=== PATIENT | female | born 1930 | race Caucasian/White ===

== ENCOUNTER → 2016-10-07 | Outpatient (CLI) | payer OTHER, BC ==
[~2016-10-07] MED LIST: AMLO2.5T PO; ASPEC81 PO; ASPI81TA28 PO; CLB200 PO; EFF/375 PO; GLC/500 PO; HYDR-5688 PO; LEVO100T7 PO; LISI-787 PO; MULTTAB58 PO; NADO40TA PO; PRAM1TAB52 PO; SIMV20TA2 PO; SNK PO; ZNT/150 PO
[2016-10-07 13:39] LABS: ALT/SGPT 22 U/L (12-78); AST/SGOT 19 U/L (15-37); BLOOD UREA NITROGEN 18 mg/dl (7-18); BUN/CREATININE RATIO 24.4 (10-20); CALCIUM 9.3 mg/dl (8.5-10.1); CARBON DIOXIDE 29 mmol/L (21-32); CHLORIDE 102 mmol/L (98-107); CREATININE 0.72 mg/dl (0.60-1.20); GLUCOSE 110 mg/dl (70-99); POTASSIUM 4.1 mmol/L (3.5-5.1); SODIUM 138 mmol/L (136-145)
[2016-10-07 13:42] LABS: CHOLESTEROL 152 mg/dl (0-200); CHOLESTEROL/HDL RATIO 2.6; HDL CHOLESTEROL 59 mg/dl; LDL CHOLESTEROL CALCULATED 68 mg/dl; PHOSPHORUS 3.2 mg/dl (2.5-4.9); TRIGLYCERIDES 126 mg/dl (0-150); VERY LOW DENSITY LIPOPROT CALC 25 mg/dl
[2016-10-07 13:43] LABS: ESTIMATED AVERAGE GLUCOSE 163 mg/dl; HA1C FLAG Normal (Normal)
== END | disposition home or self-care (01) ==
LOC: C.LABMFLN 07:55
PROVIDERS: ATTEND Family Medicine
DX: E11.9 Type 2 diabetes mellitus without complications (principal); E78.5 Hyperlipidemia, unspecified

== ENCOUNTER → 2017-01-05 | Outpatient (CLI) | payer OTHER, BC ==
[2017-01-05 13:52] LABS: BLOOD UREA NITROGEN 17 mg/dl (7-18); CALCIUM 9.7 mg/dl (8.5-10.1); CARBON DIOXIDE 29 mmol/L (21-32); CHLORIDE 104 mmol/L (98-107); CREATININE 0.58 mg/dl (0.60-1.20); ESTIMATED AVERAGE GLUCOSE 157 mg/dl; GLUCOSE 112 mg/dl (70-99); HA1C FLAG Normal (Normal); PHOSPHORUS 3.2 mg/dl (2.5-4.9); POTASSIUM 3.6 mmol/L (3.5-5.1); SODIUM 141 mmol/L (136-145)
[2017-01-05 13:59] LABS: RATIO 38.1 mcg/mg (0-30.0)
== END | disposition home or self-care (01) ==
LOC: C.LABMFLN 18:16
PROVIDERS: ATTEND Family Medicine
DX: E11.9 Type 2 diabetes mellitus without complications (principal); E03.9 Hypothyroidism, unspecified

== ENCOUNTER → 2017-03-16 | Outpatient (CLI) | payer OTHER, BC ==
[2017-03-16 13:14] LABS: BASO % 0.8 %; BASO ABS # 0.04 K/uL (0-0.2); COMPLETE YES; EOS % 8.1 %; HEMATOCRIT 38.9 % (37-47); LYMPH % 30.9 %; LYMPH ABS # 1.63 K/uL (1.2-3.4); MEAN CELL VOLUME 82.8 fL (80-100); MEAN CORPUSCULAR HEMOGLOBIN 26.2 pg (25-34); MEAN CORPUSCULAR HGB CONC 31.6 g/dl (32-36); MEAN PLATELET VOLUME 9.9 fL (7.4-10.4); MONO % 11.2 %; PLATELET COUNT 229 K/uL (130-400); WHITE BLOOD COUNT 5.28 K/uL (4.8-10.8)
[2017-03-16 13:24] LABS: ALT/SGPT 22 U/L (12-78); AST/SGOT 18 U/L (15-37); BLOOD UREA NITROGEN 12 mg/dl (7-18); BUN/CREATININE RATIO 19.8 (10-20); CALCIUM 9.5 mg/dl (8.5-10.1); CARBON DIOXIDE 33 mmol/L (21-32); CHLORIDE 102 mmol/L (98-107); CREATININE 0.62 mg/dl (0.60-1.20); GLUCOSE 121 mg/dl (70-99); MAGNESIUM 1.9 mg/dl (1.8-2.4); POTASSIUM 3.5 mmol/L (3.5-5.1); SODIUM 139 mmol/L (136-145)
[2017-03-16 13:26] LABS: ALB/GLOB RATIO 0.7 (0.9-2); ALKALINE PHOSPHATASE 88 U/L (45-117)
--- NOTE | 2017-04-14 06:41 | CODING QUERY MEDICAL NECESSITY ---
CQSUPPORTING DIAGNOSIS NEEDED A supporting diagnosis is required for the test/procedure performed on this patient in order for us to be reimbursed by the patient's insurance. Please provide a supporting diagnosis for the following test/procedure listed below next to the test name along with your signature. *If there is no additional diagnosis for this patient that would support the following test/procedure please document that below next to the test/procedure. Test(s)/Procedure(s) that require a supporting diagnosis: DOS 03/16/17 VITAMIN D TEST VITAMIN B12 TEST TEST ORDERED BY ELKIN JANSEN Provider Signature: Date: Thank you Michelle Keyes Health Information Management Once completed, please kindly fax back to [phone] For questions please call [phone]
== END | disposition home or self-care (01) ==
LOC: C.LABMFLN 10:26
PROVIDERS: ATTEND Family Medicine
DX: R53.83 Other fatigue (principal); M79.606 Pain in leg, unspecified; E55.9 Vitamin D deficiency, unspecified

== ENCOUNTER → 2017-07-06 | Outpatient (CLI) | payer OTHER, BC ==
[2017-07-06 13:21] LABS: ESTIMATED AVERAGE GLUCOSE 154 mg/dl; HA1C FLAG Normal (Normal)
[2017-07-06 13:25] LABS: BLOOD UREA NITROGEN 13 mg/dl (7-18); BUN/CREATININE RATIO 20.8 (10-20); CALCIUM 9.8 mg/dl (8.5-10.1); CARBON DIOXIDE 30 mmol/L (21-32); CHLORIDE 99 mmol/L (98-107); CREATININE 0.63 mg/dl (0.60-1.20); GLUCOSE 110 mg/dl (70-99); PHOSPHORUS 3.1 mg/dl (2.5-4.9); POTASSIUM 3.5 mmol/L (3.5-5.1); SODIUM 137 mmol/L (136-145)
== END | disposition home or self-care (01) ==
LOC: C.LABMFLN 10:29
PROVIDERS: ATTEND Family Medicine
DX: E11.9 Type 2 diabetes mellitus without complications (principal)

== ENCOUNTER → 2017-10-19 | Outpatient (CLI) | payer OTHER, BC ==
[2017-10-19 19:06] LABS: ALBUMIN 3.3 gm/dl (3.4-5.0); BLOOD UREA NITROGEN 19 mg/dl (7-18); CALCIUM 9.1 mg/dl (8.5-10.1); CARBON DIOXIDE 27 mmol/L (21-32); CREATININE 0.74 mg/dl (0.60-1.20); GLUCOSE 113 mg/dl (70-99); POTASSIUM 3.8 mmol/L (3.5-5.1); SODIUM 135 mmol/L (136-145)
[2017-10-19 19:10] LABS: CHOLESTEROL 140 mg/dl (0-200); LDL CHOLESTEROL CALCULATED 68 mg/dl; PHOSPHORUS 3.6 mg/dl (2.5-4.9)
[2017-10-20 06:29] LABS: HEMOGLOBIN A1C 7.1 % (4.5-5.6)
== END | disposition home or self-care (01) ==
LOC: C.LABMFLN 10:53
PROVIDERS: ATTEND Family Medicine
DX: E11.9 Type 2 diabetes mellitus without complications (principal); E78.5 Hyperlipidemia, unspecified; E55.9 Vitamin D deficiency, unspecified

== ENCOUNTER → 2018-04-06 | Outpatient (CLI) | payer OTHER, BC ==
[~2018-04-06] MED LIST changes: +ACET1TAB84 PO; +AMLO5TAB3 PO; +ASCO-63 PO; +ASPCH81X PO; -ASPEC81 PO; +ASPI-320 PO; +CARB1SOL OPB; +CHOL2000 PO; +CYAN100020 PO; +FERR1TAB23 PO; +LEVO112T4 PO; +META1TAB22 PO; +METF500T5 PO; +MULT-506 PO; +PRAM1TAB47 PO; +PRAV20TA PO; +[UNRECOGNIZED DRUG - OTHER] PO
--- NOTE | 2018-04-06 13:08 | DIAGNOSTIC IMAGING REPORT ---
CHEST SUPERDIMENSIONAL WITHOUT CLINICAL HISTORY: 87 years-old Female presenting with R91.8 Pulmonary nodules. TECHNIQUE: Multidetector CT imaging of the chest was performed without the use of intravenous contrast. IV contrast: None. A dose lowering technique was used consistent with the principles of ALARA (as low as reasonably achievable). COMPARISON: 01/27/2018. CT DOSE (mGy.cm): The estimated cumulative dose is 203.88 mGy.cm. FINDINGS: Cloth Mercerizing Supervisor topogram: Hyperinflated lungs. On soft tissue windows, thyroid may be surgically absent or atrophic. Multiple prominent mediastinal lymph nodes measuring up to 8 mm in the short axis in the precarinal region. These may be reactive. Atherosclerosis of the aorta. Multichamber enlargement of the heart. Coronary artery, aortic valve, and mitral annular calcification. No pericardial or pleural effusion. Upper abdomen normal. On lung windows, moderate apical predominant emphysema. The previously noted irregular nodular opacity in the right apex is less well-defined on the current exam and may represent scarring or postinfectious or postinflammatory change (series 4 image 86). Dependent groundglass opacity throughout both lower lobes. Scattered small solid pulmonary nodules in the right lung measuring up to 5 mm (series 4 images 59, 140, 148, 176, 196). Crowding of vascular markings at the lung bases makes a violation for lower lobe pulmonary nodules difficult. Additionally, image quality at the lung bases is degraded by respiratory motion related artifact. Calcified granuloma in the left upper lobe. Central airways patent. No pneumothorax. On bone windows, degenerative changes of the spine. IMPRESSION: 1. Previous site of irregular nodular opacity in the right apex is less well-defined on the current exam and does not appear as a discrete nodule. This may represent scarring or postinfectious or postinflammatory change. 2. Multiple solid pulmonary nodules in the right lung measuring up to 5 mm. These are unchanged from prior. 3. Emphysema. Please refer to below summary of Fleischner Society 2017 recommendations for follow-up of incidental CT nodules (Ousmane Vega et al. Guidelines for management of incidental pulmonary nodules detected on CT images: From the Fleischner Society 2017. Radiology 2017; 284: 228-243.) SOLID NODULES Single nodule; size < 6 mm * Low risk patients: No routine follow-up * High risk patients: Optional CT at 12 months Single nodule; size 6-8 mm * Low risk patients: CT at 6-12 months, then consider CT at 18-24 months * High risk patients: CT at 6-12 months, then at 18-24 months Single nodule; size > 8 mm * Either low or high risk patients: Considered CT at 3 months, PET/CT, or tissue sampling Multiple nodules; size < 6 mm * Low risk patients: No routine follow up * High risk patients: Optional CT at 12 months Multiple nodules; size 6-8 mm * Low risk patients: CT at 3-6 months, then consider CT at 18-24 months * High risk patients: CT at 3-6 months, then at 18-24 months Multiple nodules; size > 8 mm * Low risk patients: CT at 3-6 months, then consider at 18-24 months * High risk patients: CT at 3-6 months, then at 18-24 months SUBSOLID NODULES Single ground-glass nodule * Nodule size < 6 mm: No routine follow-up * Nodule size > or = 6 mm: CT at 6-12 months to confirm persistence, then CT every 2 years until 5 years Single part-solid nodule * Nodule size < 6 mm: No routine follow-up * Nodules size > or = 6 mm: CT at 3-6 months to confirm persistence. If unchanged and solid component remains < 6 mm, annual CT should be performed for 5 years Multiple nodules * Nodule size < 6 mm: CT at 3-6 months. If stable, consider CT at 2 and 4 years. * Nodules size > or = 6 mm: CT at 3-6 months. Subsequent management based on the most suspicious nodule(s) NOTE: 1) These guidelines apply to incidental nodules. These guidelines do NOT apply to patients younger than 35 years, immunocompromised patients, or patients with cancer. 2) Risk categories: * Low risk patients: Minimal or absent history of smoking and/or other known risk factors * High risk patients: History of smoking, exposure to other carcinogens, emphysema, fibrosis, upper lobe location, family history of lung cancer, etc. 3) If a nodule up to 8 mm is partly solid or is ground glass, further follow-up is required after 24 months to exclude possible slow growing adenocarcinoma. Electronically signed by: Simone Mallory M.D. 04/06/2018 1:06 PM Dictated Date/Time: 04/06/2018 12:56 PM
== END | disposition home or self-care (01) ==
LOC: C.CTS 12:15
PROVIDERS: ATTEND Surgery
DX: R91.8 Other nonspecific abnormal finding of lung field (principal); J43.9 Emphysema, unspecified

== ENCOUNTER 2021-12-11 10:42 | Inpatient (IN) ==
[2021-12-11] MEDS ORDERED: ALBUT/IPRATROP 3MG/0.5MG NEB 3 ML VIAL INH STA (11:11)
--- NOTE | 2021-12-11 11:14 | Emergency Department Note ---
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 Patient was at the [facility] earlier today for chemotherapy treatment, was noted to be short of breath and had oxygen saturations in the 80s at that time on room air, she was referred to the emergency department for further care. Patient does have some memory issues at baseline, she is a poor historian, she is unable to give me a course of her illness. Her niece at the bedside states that the patient did seem to have some increased work of breathing earlier today when they were at the [facility]. She denies any chest pain. She was noted to be saturating at 80% on room air on arrival here to the ED and was placed on 3 L of nasal cannula oxygen with good improvement to 97% on my initial assessment. ROS: -Pulm: Shortness of breath, hypoxia. *10 point review systems was conducted and is otherwise negative unless stated above *Outpatient medications and allergy history reviewed PE: General: Alert, frail-appearing HEENT: Normocephalic, atraumatic Eyes: Extraocular eye movement is intact, no scleral erythema Pulmonary: Coarse bilateral breath sounds Cardio: Regular rate and rhythm GI: Abdomen is soft, nontender : No suprapubic tenderness MSK: No evidence of trauma or malformation of the extremities, no edema Skin: No evidence of rash Neuro: Alert, no focal deficits Psychiatric: Cooperative bus monitor: - An order was placed for continuous cardiac monitoring - Patient was noted to be in sinus rhythm with rate of 96 EKG: Rate: 94 Rhythm: Normal sinus rhythm Intervals: QRS 138 ms, QTC 502 ms, NC within normal limits ST changes: No ST elevation Time: 1116 Medical Decision Making: Patient presented to the emergency department with shortness of breath, hypoxia, this was noted when she was in the oncology office today. She was saturating at 80% on room air on arrival here to the ED, she was placed on nasal cannula oxygen with good improvement. Patient does have a history of large B-cell lymphoma and is currently under chemotherapy. She denies any chest pain on arrival. She does have a history of memory impairment per documentation and is a poor historian, her niece at the bedside serves as the primary historian. Early after arrival IV was established, patient was maintained on nasal cannula oxygen, lab work was obtained and she was placed on the child monitor. Patient maintained oxygen saturations in the high 90s on 3 L nasal cannula oxygen. Lab work shows a slightly low hemoglobin at 9.5, this is a change management manager the past 5 days from the patient's previous level of 10.6, she denies any gross bleeding. There is no leukocytosis, no critical electrolyte abnormalities are noted. High-sensitivity troponin levels elevated in the 70s. EKG does not show any acute changes from previous. Patient denies any active chest pain. Venous blood gas shows evidence of hypercarbic respiratory failure with acidotic pH of 7.28 and hypercarbia of 59, patient was given Solu-Medrol and DuoNeb breathing treatment here in the ED. CT angiography of the chest was obtained and does not show any evidence of pulmonary embolism, there is evidence of mild to moderate pulmonary edema. Patient was ordered a small dose of IV Lasix. On my reassessment the patient is comfortable appearing on 3 L nasal cannula oxygen, she will be admitted for further management. [facility] Hospitalist service was consulted for admission. Patient and her niece at the bedside are in agreement to the above plan and the patient was admitted in stable condition. * CRITICAL CARE TIME: ( 45 ) minutes -Stabilization of hypoxia with oxygen saturations less than 90% on room air, requiring nasal cannula oxygen for improvement, time spent at the bedside, interpretation of diagnostic studies, discussion with other healthcare providers and arrangement of admission. Diagnosis: 1. Acute hypoxic respiratory failure with hypercarbia 2. Respiratory acidosis 3. Pulmonary edema 4. History of large B-cell lymphoma, on chemotherapy 5. Evaded high-sensitivity troponin level Disposition: Admission Chencho Alexandra DO Emergency Medicine Past Med/Surg History Medical History Anemia Anxiety Chronic obstructive pulmonary disease Depression Diabetes mellitus, type 2 History of anesthesia reaction Hx of ulcer disease Hyperlipidemia Hypertension Hypothyroidism Osteoarthritis Restless leg syndrome Scoliosis Sleep apnea SOB (shortness of breath) on exertion UTI symptoms Surgical History History of dilatation and curettage History of endoscopic sinus surgery History of lung surgery History of total hip arthroplasty Family History Family/Other Family history of diabetes mellitus Other Family history of esophageal cancer Social History Smoking Status: Former smoker Cigarettes Per Day: 20; Second Hand Exposure: No; Hx Alcohol Use: No Hx Substance Use: No Preferred Language: Bhutanese Communication Ability: Effective Machine 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 Required: No Beliefs That Will Affect Care: None Current Living Situation: Alone Feels Safe at Home: Yes Assistive Devices: Glasses, Hearing Aid - Left and Walker Allergies Allergies Allergy/AdvReac Type Severity Reaction Status Date / Time No Known Allergies Allergy Verified 11/14/21 09:26 Home Meds Previous Rx's Medication Instructions Recorded aspirin 81 mg tablet,delayed 81 mg PO DAILY #90 tab 02/25/21 release (Adult Low Dose Aspirin) calcium carbonate 320 mg calcium 650 mg PO BID #180 tab 02/25/21 (750 mg) chewable tablet (Antacid (calcium carbonate)) cholecalciferol (vitamin D3) 50 50 mcg PO DAILY #90 cap 02/25/21 mcg (2,000 unit) capsule levothyroxine 112 mcg tablet 112 mcg PO DAILY #90 tab 02/25/21 metformin 850 mg tablet 850 mg PO BID #180 tab 02/25/21 pramipexole 1 mg tablet 1 mg PO DAILY #90 tab 02/25/21 blood glucose control, normal #1 ea 03/15/21 acetaminophen 325 mg tablet 650 mg PO BID #120 tab 06/05/21 (Tylenol) blood sugar diagnostic (True #200 ea 06/05/21 Metrix Glucose Test Strip) multivitamin 1 tab PO DAILY #30 tab 08/07/21 furosemide 20 mg tablet (Lasix) 20 mg PO DAILY #90 tab 08/21/21 metoprolol succinate 25 mg 25 mg PO DAILY #30 tab 09/18/21 tablet,extended release 24 hr lisinopril 10 mg tablet 15 mg PO DAILY #30 tab 09/20/21 venlafaxine 150 mg 150 mg PO DAILY #30 cap 09/23/21 capsule,extended release 24 hr (Effexor XR) triamcinolone acetonide 0.1 % 1 applic TOPICAL BID 10 Days #15 g 09/26/21 topical cream omeprazole 20 mg capsule,delayed 20 mg PO DAILY #30 cap 10/11/21 release melatonin 10 mg capsule 10 mg PO HS #90 cap 10/22/21 blood glucose control, high and #1 ea 10/24/21 normal solution (Assure Dose Norm-Hi Control) ferrous sulfate 325 mg (65 mg 325 mg PO Q OTHER DAY #30 tab 11/14/21 iron) tablet trazodone 100 mg tablet 100 mg PO .qhs #30 tab 11/14/21 Results & Data (ED) Vital Signs Vital Signs - 24 hr 12/11/21 10:56 12/11/21 11:16 12/11/21 12:42 Temperature 36.2 C L Temperature Source Temporal Artery Scan Pulse Rate 96 H Pulse Rate [Apical] 100 H Pulse Rhythm [Apical] Regular Respiratory Rate 20 14 Respiratory Effort / Characteristics Non-Labored Spontaneous Non-Labored Respiratory Depth Normal Normal Respiratory Pattern Regular Regular Blood Pressure 116/67 Blood Pressure [Right Arm] 129/70 Blood Pressure Mean 83 Blood Pressure Mean [Right Arm] 89 Pulse Oximetry 80 L 97 95 Oxygen Delivery Method Room Air Nasal Cannula Nasal Cannula Oxygen Flow Rate 2 3 Sepsis Recent Fever Within 48 Hours No Sepsis New/Unexplained Change in Mental Status No Sepsis Action Taken by Nursing No Action Required Laboratory Data Result diagrams: 12/11/21 11:30 12/11/21 11:30 Lab Results 12/11/21 12/11/21 12/11/21 Range/Units 11:30 11:30 11:30 WBC 8.67 (4.8-10.8) K/uL RBC 3.94 L (4.2-5.4) M/uL Hgb 9.5 L (12.0-16.0) g/dL Hct 32.1 L (37-47) % MCV 81.5 (80-100) fL MCH 24.1 L (25-34) pg MCHC 29.6 L (32-36) g/dL RDW Std Deviation 52.1 H (36.4-46.3) fL RDW Coeff of Axel 18.0 H (11.5-14.5) % Plt Count 363 (130-400) K/uL MPV 8.9 (7.4-10.4) fL Immature Gran % (Auto) 0.5 % Neut % (Auto) 90.1 % Lymph % (Auto) 6.2 % Clinch % (Auto) 2.4 % Eos % (Auto) 0.3 % Baso % (Auto) 0.5 % Neut # (Auto) 7.81 H (1.4-6.5) K/uL Lymph # (Auto) 0.54 L (1.2-3.4) K/uL Clinch # (Auto) 0.21 (0.11-0.59) K/uL Eos # (Auto) 0.03 (0-0.5) K/uL Baso # (Auto) 0.04 (0-0.2) K/uL Immature Gran # (Auto) 0.04 H (0.00-0.02) K/uL PT 11.1 (9.0-12.0) Seconds INR 1.0 (0.9-1.1) VBG pH (7.36-7.41) VBG pCO2 (38-50) mmHg VBG pO2 mmHg VBG HCO3 mmol/L VBG O2 Saturation % VBG Base Excess mEq/L Barometric Pressure mm/Hg Sodium 138 (136-145) mmol/L Potassium 4.0 (3.5-5.1) mmol/L Chloride 106 (98-107) mmol/L Carbon Dioxide 26 (21-32) mmol/L Anion Gap 6 (3-11) BUN 17 (6-23) mg/dl Creatinine 0.81 (0.6-1.2) mg/dl Est Cr Clr Drug Dosing Not Reportable Est GFR ( Amer) 74.6 ml/min Est GFR (Non-Af Amer) 64.4 ml/min BUN/Creatinine Ratio 21.0 H (10-20) Glucose 133 H (70-99(Fasting)) mg/dl Calcium 8.5 (8.5-10.1) mg/dl Total Bilirubin 0.2 (0.2-1.0) mg/dl AST 22 (13-39) U/L ALT 24 (7-52) U/L Alkaline Phosphatase 75 (34-104) U/L Troponin I High Sens 74.4 H* (0-14) pg/ml B-Natriuretic Peptide (0-100) pg/ml Total Protein 6.5 (6.0-8.3) gm/dl Albumin 3.6 (3.4-5.0) gm/dl Globulin 2.9 (2.5-4.0) gm/dl Albumin/Globulin Ratio 1.2 (0.9-2) Urine Color Urine Appearance (Clear) Urine pH (4.5-7.5) Ur Specific Minerva (1.000-1.030) Urine Protein (Negative) Urine Glucose (UA) (Negative) Urine Ketones (Negative) Urine Blood (Negative) Urine Nitrite (Negative) Urine Bilirubin (Negative) Urine Urobilinogen (Negative) Ur Leukocyte Esterase (Negative) 12/11/21 12/11/21 12/11/21 Range/Units 11:35 12:49 13:20 WBC (4.8-10.8) K/uL RBC (4.2-5.4) M/uL Hgb (12.0-16.0) g/dL Hct (37-47) % MCV (80-100) fL MCH (25-34) pg MCHC (32-36) g/dL RDW Std Deviation (36.4-46.3) fL RDW Coeff of Axel (11.5-14.5) % Plt Count (130-400) K/uL MPV (7.4-10.4) fL Immature Gran % (Auto) % Neut % (Auto) % Lymph % (Auto) % Clinch % (Auto) % Eos % (Auto) % Baso % (Auto) % Neut # (Auto) (1.4-6.5) K/uL Lymph # (Auto) (1.2-3.4) K/uL Clinch # (Auto) (0.11-0.59) K/uL Eos # (Auto) (0-0.5) K/uL Baso # (Auto) (0-0.2) K/uL Immature Gran # (Auto) (0.00-0.02) K/uL PT (9.0-12.0) Seconds INR (0.9-1.1) VBG pH 7.28 L (7.36-7.41) VBG pCO2 59 H (38-50) mmHg VBG pO2 40 mmHg VBG HCO3 27 mmol/L VBG O2 Saturation 66.0 % VBG Base Excess 0 mEq/L Barometric Pressure 738.2 mm/Hg Sodium (136-145) mmol/L Potassium (3.5-5.1) mmol/L Chloride (98-107) mmol/L Carbon Dioxide (21-32) mmol/L Anion Gap (3-11) BUN (6-23) mg/dl Creatinine (0.6-1.2) mg/dl Est Cr Clr Drug Dosing Est GFR ( Amer) ml/min Est GFR (Non-Af Amer) ml/min BUN/Creatinine Ratio (10-20) Glucose (70-99(Fasting)) mg/dl Calcium (8.5-10.1) mg/dl Total Bilirubin (0.2-1.0) mg/dl AST (13-39) U/L ALT (7-52) U/L Alkaline Phosphatase (34-104) U/L Troponin I High Sens (0-14) pg/ml B-Natriuretic Peptide 562 H (0-100) pg/ml Total Protein (6.0-8.3) gm/dl Albumin (3.4-5.0) gm/dl Globulin (2.5-4.0) gm/dl Albumin/Globulin Ratio (0.9-2) Urine Color Yellow Urine Appearance Clear (Clear) Urine pH 5.0 (4.5-7.5) Ur Specific Minerva 1.017 (1.000-1.030) Urine Protein Negative (Negative) Urine Glucose (UA) Negative (Negative) Urine Ketones Negative (Negative) Urine Blood Negative (Negative) Urine Nitrite Negative (Negative) Urine Bilirubin Negative (Negative) Urine Urobilinogen Negative (Negative) Ur Leukocyte Esterase Negative (Negative) Administered Medications Discontinued Medications Albuterol (Albut/Ipratrop 3mg/0.5mg Neb 3 Ml Vial) 3 ml INH NOW STA Stop: 12/11/21 11:12 Last Admin: 12/11/21 11:31 Dose: 3 ml Documented by: [id number] Ioversol (Optiray 320 125ml) 120 ml IV ONCE ONE Stop: 12/11/21 13:11 Last Admin: 12/11/21 13:10 Dose: 120 ml Documented by: [id number] Imaging Data Radiologist's Impression: Chest CTA 12/11/21 11:11 CT angio chest PE protocol CLINICAL HISTORY: Dyspnea TECHNIQUE: Multidetector row helical CT of the chest was performed with angiographic protocol. Coronal and sagittal reformations were obtained. Coronal and sagittal MIPS were obtained from the axial data set and were submitted for review. Automated dose lowering techniques and/or adjustment according to patient size were utilized for this exam. Comparison: Comparison is made to CT chest 05/30/2020 FINDINGS: Lungs and pleura: Diffuse centrilobular emphysema is seen most prominent in the upper lobes. Groundglass opacities, Bronchial wall thickening and interlobular septal thickening are seen. Postsurgical changes are seen in the right apex, unchanged. Heart and pericardium: Cardiomegaly is seen with biatrial enlargement. Vessels: The pulmonary trunk is enlarged measuring 33 mm. No pulmonary embolus is seen. Mild atherosclerotic disease is seen. Mediastinum and lanette: Multiple mediastinal lymph nodes are seen measuring up to 11 mm in diameter Chest wall and lower neck: Unremarkable. Abdomen: Unremarkable. Bones: Degenerative changes in the thoracic spine. IMPRESSION: 1. No evidence of pulmonary embolism. 2. Pulmonary hypertension with groundglass opacities and smooth interlobular septal thickening which may represent moderate pulmonary edema. Superimposed pneumonia cannot be excluded. 3. Emphysema. 4. Mediastinal lymphadenopathy, increased from prior exam, which may be reactive. ACT 112: Negative or not required by law. Electronically signed by: Yunier Basurto M.D. 12/11/2021 1:41 PM Chest X-Ray 12/11/21 11:11 XR chest 1V portable HISTORY: Dyspnea COMPARISON: Chest 04/28/2018. FINDINGS: No pneumothorax. The heart is mildly enlarged. There are suture material seen within the right upper to midlung zone consistent with postoperative change. A right jugular Port-A-Cath range at the SVC. There are calcifications within the aortic knob. Coarse interstitial thickening is again noted. This is likely chronic. A few left basilar linear densities are noted. There are scarlike densities within the right upper lung zone. Suspect a trace right pleural effusion. IMPRESSION: 1. Cardiomegaly with mild central pulmonary vascular congestion without overt edema. 2. Emphysema. 3. Postoperative changes within the right lung again noted. 4. Trace right pleural effusion. 5. A few left basilar linear densities are nonspecific and may represent atelectasis. ACT 112: Negative or not required by law. Electronically signed by: Papa Wen M.D. 12/11/2021 11:42 AM Discharge Plan Visit Data Chief Complaint: Respiratory Problems Stated Complaint: LOW 02 COUGH/RATTLES IN LUNG REF BY DR CHILDRESS ED Provider: Chencho Alexandra Discharge Problem: Hypoxia Forms Stand Alone Forms: My [facility] Prescriptions Prescriptions: No Action aspirin [Adult Low Dose Aspirin] 81 mg tablet,delayed release (DR/EC) 81 mg PO DAILY Qty: 90 RF: 3 calcium carbonate [Antacid (calcium carbonate)] 320 mg calcium (750 mg) tablet,chewable 650 mg PO BID Qty: 180 RF: 3 cholecalciferol (vitamin D3) 50 mcg (2,000 unit) capsule 50 mcg PO DAILY Qty: 90 RF: 3 levothyroxine 112 mcg tablet 112 mcg PO DAILY Qty: 90 RF: 3 metformin 850 mg tablet 850 mg PO BID Qty: 180 RF: 3 (DME) blood glucose control, normal Solution See Rx Instructions .Route Qty: 1 RF: 0 (DME) True Metrix Glucose Test Strip Strip See Rx Instructions .Route Qty: 200 RF: 5 acetaminophen [Tylenol] 325 mg tablet 650 mg PO BID Qty: 120 RF: 0 multivitamin Tablet 1 tab PO DAILY Qty: 30 RF: 0 furosemide [Lasix] 20 mg tablet 20 mg PO DAILY Qty: 90 RF: 0 metoprolol succinate 25 mg tablet extended release 24 hr 25 mg PO DAILY Qty: 30 RF: 2 venlafaxine [Effexor XR] 150 mg capsule,extended release 24hr 150 mg PO DAILY Qty: 30 RF: 2 omeprazole 20 mg capsule,delayed release(DR/EC) 20 mg PO DAILY Qty: 30 RF: 2 melatonin 10 mg capsule 10 mg PO HS Qty: 90 RF: 3 (DME) blood glucose contrl hi,normal [Assure Dose Norm-Hi Control] Solution See Rx Instructions .Route Qty: 1 RF: 0 ferrous sulfate 325 mg (65 mg iron) tablet 325 mg PO Q OTHER DAY Qty: 30 RF: 0 pramipexole 1 mg tablet 1 mg PO DAILY Qty: 90 RF: 3 lisinopril 10 mg tablet 15 mg PO DAILY Qty: 30 RF: 2 trazodone 100 mg tablet 100 mg PO .qhs Qty: 30 RF: 2 triamcinolone acetonide 0.1 % cream 1 applic topical BID 10 Days Qty: 15 RF: 0 Referrals Referrals: Miguelina Loera DO [Primary Care Provider] -
--- NOTE | 2021-12-11 11:44 | XRay Report ---
XR chest 1V portable HISTORY: Dyspnea COMPARISON: Chest 04/28/2018. FINDINGS: No pneumothorax. The heart is mildly enlarged. There are suture material seen within the ri ght upper to midlung zone consistent with postoperative change. A right jugular Port-A-Cath range at the SVC. There are calcifications within the aortic knob. Coarse interstitial thickening is again not ed. This is likely chronic. A few left basilar linear densities are noted. There are scarlike densiti es within the right upper lung zone. Suspect a trace right pleural effusion. IMPRESSION: 1. Cardiomegaly with mild central pulmonary vascular congestion without overt edema. 2. Emphysema. 3. Postoperative changes within the right lung again noted. 4. Trace right pleural effusion. 5. A few left basilar linear densities are nonspecific and may represent atelectasis. ACT 112: Negative or not required by law. Electronically signed by: Papa Wen M.D. 12/11/2021 11:42 AM
[2021-12-11 11:53] LABS: Basophils # (auto) 0.04 K/uL (0-0.2); Basophils % (auto) 0.5 %; Eosinophils # (auto) 0.03 K/uL (0-0.5); Eosinophils % (auto) 0.3 %; Hematocrit (blood only) 32.1 % (37-47); Hemoglobin 9.5 g/dL (12.0-16.0); Immature Granulocytes # (auto) 0.04 K/uL (0.00-0.02); Immature Granulocytes % (auto) 0.5 %; Lymphocytes # (auto) 0.54 K/uL (1.2-3.4); Lymphocytes % (auto) 6.2 %; Mean Corpuscular Hemoglobin 24.1 pg (25-34); Mean Corpuscular Hgb Conc 29.6 g/dL (32-36); Mean Corpuscular Volume 81.5 fL (80-100); Mean Platelet Volume 8.9 fL (7.4-10.4); Monocytes # (auto) 0.21 K/uL (0.11-0.59); Monocytes % (auto) 2.4 %; Neutrophils # (auto) 7.81 K/uL (1.4-6.5); Neutrophils % (auto) 90.1 %; Platelet Count 363 K/uL (130-400); RDW Standard Deviation 52.1 fL (36.4-46.3); Red Blood Count 3.94 M/uL (4.2-5.4); White Blood Count 8.67 K/uL (4.8-10.8)
[2021-12-11 11:54] LABS: Prothrombin Time 11.1 Seconds (9.0-12.0)
[2021-12-11 12:00] LABS: pH VBG 7.28 (7.36-7.41)
[2021-12-11 12:10] LABS: Alanine Aminotransferase 24 U/L (7-52); Albumin Globulin Ratio 1.2 (0.9-2); Albumin Level 3.6 gm/dl (3.4-5.0); Alkaline Phosphatase 75 U/L (34-104); Anion Gap 6 (3-11); Aspartate Aminotransferase 22 U/L (13-39); Bilirubin,Total 0.2 mg/dl (0.2-1.0); Blood Urea Nitrogen 17 mg/dl (6-23); Calcium 8.5 mg/dl (8.5-10.1); Carbon Dioxide 26 mmol/L (21-32); Chloride 106 mmol/L (98-107); Est GFR (African American) 74.6 ml/min; Est GFR (Non-African American) 64.4 ml/min; Globulin 2.9 gm/dl (2.5-4.0); Glucose 133 mg/dl (70-99(Fasting)); Sodium 138 mmol/L (136-145); Total Protein 6.5 gm/dl (6.0-8.3)
[2021-12-11 12:16] LABS: Troponin I High Sensitivity 74.4 pg/ml (0-14)
[2021-12-11] MEDS ORDERED: OPTIRAY 320 125ml IV ONE (13:10)
[2021-12-11] MEDS ORDERED: methylPREDNISolone 125 MG/2 ML VIAL IV STA (13:29)
--- NOTE | 2021-12-11 13:43 | CT Scan Report ---
CT angio chest PE protocol CLINICAL HISTORY: Dyspnea TECHNIQUE: Multidetector row helical CT of the chest was performed with angiographic protocol. Geiger l and sagittal reformations were obtained. Coronal and sagittal MIPS were obtained from the axial lena a set and were submitted for review. Automated dose lowering techniques and/or adjustment according to patient size were utilized for this exam. Comparison: Comparison is made to CT chest 05/30/2020 FINDINGS: Lungs and pleura: Diffuse centrilobular emphysema is seen most prominent in the upper lobes. Groundgl ass opacities, Bronchial wall thickening and interlobular septal thickening are seen. Postsurgical ch anges are seen in the right apex, unchanged. Heart and pericardium: Cardiomegaly is seen with biatrial enlargement. Vessels: The pulmonary trunk is enlarged measuring 33 mm. No pulmonary embolus is seen. Mild atherosc lerotic disease is seen. Mediastinum and lanette: Multiple mediastinal lymph nodes are seen measuring up to 11 mm in diameter Chest wall and lower neck: Unremarkable. Abdomen: Unremarkable. Bones: Degenerative changes in the thoracic spine. IMPRESSION: 1. No evidence of pulmonary embolism. 2. Pulmonary hypertension with groundglass opacities and smooth interlobular septal thickening which may represent moderate pulmonary edema. Superimposed pneumonia cannot be excluded. 3. Emphysema. 4. Mediastinal lymphadenopathy, increased from prior exam, which may be reactive. ACT 112: Negative or not required by law. Electronically signed by: Yunier Basurto M.D. 12/11/2021 1:41 PM
[2021-12-11 13:44] LABS: Appearance Urine Clear (Clear); Bilirubin Urine Negative (Negative); Blood Urine Negative (Negative); Color Urine Yellow; Glucose Urine UA Negative (Negative); Ketones Urine Negative (Negative); Leukocyte Esterase Urine Negative (Negative); Nitrite Urine Negative (Negative); Protein Urine Negative (Negative); Specific Gravity Urine 1.017 (1.000-1.030); Urobilinogen Urine Negative (Negative)
[2021-12-11] MEDS ORDERED: FUROSEMIDE INJ 20 MG/2 ML VIAL IV ONE (13:45)
[2021-12-11 14:20] LABS: Influenza A virus by PCR Negative (Neg); Influenza B virus by PCR Negative (Neg); RSV by PCR Negative (Neg); SARS CoV2 RNA(COVID-19) InHosp NEGATIVE (Negative)
--- NOTE | 2021-12-11 14:26 | History & Physical Report ---
Date of Service December 11, 2021 Assessment & Plan (1) Hypoxia: Plan: Acute hypoxia multifactorial to include pulmonary edema vs. bacterial/viral pneumonia infective process vs. COPD - COVID and Influenza negative - Endorses sputum production, afebrile, mild elevation of her NLR - PCT pending - Cefepime 1GM IV q8 hours now- as she is immunocompromised - Azithromycin for COPD component as well as atypical coverage - MRSA swab pending- patient was MRSA swab positive with her pneumonia in 07/14 at [facility]- - With her component of pulmonary edema- follow with CXR in the morning following diuresing - She denies history of COPD - but disease noted by CT scan of chest- is not on inhalers as outpatient- follow clinically for now - Continue with Albuterol scheduled q6 hour for 24 hours - She received 125mg solumedrol IV in the EMD- Hold further dosing at this time (2) (HFpEF) heart failure with preserved ejection fraction: Plan: Previous ECHO review with grade I diastolic dysfunction with EF 60-65 % and mild MR- 07/14- she may have recent - follows with [facility] [place] - ECHO in am - evaluate for any toxicity or change from her initiation of R-CHOP - again she is cycle #2- may have updated ECHO prior to initiaton of chemo- this is not available to confirm or review - BNP 562 - Given 20mg IV lasix in EMD - Repeat this evening (3) B-cell lymphoma: Plan: Per chart review from [facility]- Agressive B-cell lymphoma right adrenal biopsy - R-CHOP as above cycle 2 - Follow as above (4) Elevated troponin I level: Plan: HScTNI elevated at 74 upon presentation to [facility] - 2 hour reflex-73.4 - She is without complaints of angina and ECG reviewed without any dyanamic changes when compared to 05-JUL-21 ECG - This is likely demand type II from her hypoxia and pulmonary congestion, increased HR on arrival - Not known to have CAD (5) Mitral regurgitation: Plan: Mild noted on previous ECHO - Follow with [facility] as above - Continue diuresing IV tonight - Continue Metoprolol (6) Hypothyroidism: Plan: Continue synthroid 112mcg (7) Depression: Plan: Continue Venlafaxine (8) Osteoarthritis: Plan: Continue tylenol (9) Hypertension: Plan: Continue BB and Lisinopril 15 mg PO daily (10) Diabetes mellitus, type 2: Plan: Hold Metformin - Insulin Aspart Sliding scale- CF 20 with 1:15 carb ratio (11) Atrial flutter, paroxysmal: Plan: Noted on hospitalization in [facility] in Jul 14 - She had ZIO monitor following this - copy sent with hard chart - She is not on anticoagulation - Continue with Metoprolol as above - Keep K~4.0 and MG ~ 2.0 (12) Adenocarcinoma: Plan: Ileocecal vavlve diagnosed 02/08 - resected in 2017- biopsies for liver and blayne invovlment reported as negative (13) Non-small cell cancer of left lung: Plan: Stage I NSCLC diagnosed 2017- s/p resection 2017 - remains with mediastinal lymphadenoapthy (14) Anemia: Plan: chronic microcytic- continue ferrous sulfate PO - iron panel in the morning (15) Memory impairment: Plan: Pramipexole (16) Insomnia: Plan: continue her melatonin continue trazodone to avoid withdraw- although likely not needed as she sleeps through the day as review of her jail notes and discussion with her neice - the pateint reportedly does not sleep at night (17) MRSA (methicillin resistant Staphylococcus aureus): Plan: MRSA nares positive 07/14- with hospitalization for pneumonia - she was discharged home on Augmentin/Doxycycline History of Present Illness Primary Care Provider: Miguelina Loera, DO 89 YOF with medical history of: HTN, HLD, Dyspnea, DM II, Hypothyroidism, depression, anxiety, OA, colon mass, arrythmia (aflutter 07/14), MRSA pneumonia. 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 She is under the care of [facility] and is to undergo R-CHOP therapy. The patient was seeing her Oncologist today for follow up after chemotherapy yesterday, where she became short of breath and hypoxic. She was sent to the EMD and noted to be hypoxic to recorded 80% on room air. The patient is just starting her 2nd Cycle of R-Chop and she receives this every 3 weeks. Her niece is accompanying her and noted that she was well yesterday following her chemotherapy and returned back to her jail. She picked her up this morning and noted a loose rattling sound in her voice as well as wet sounding cough this morning. The niece also endorses that she was able to walk into her appointment this morning without difficulty or increase in dyspnea. She had routine labs performed to include a HScTNI and BNP. She had an ECG done, CTA of the chest performed, CXR and a ECG. Her HScTNI was elevated as well as her BNP- her CTA of the chest was negative for PE but noted pulmonary congestion and/or infective process. She was administered 20mg IV lasix, 125mg of Hydrocortisone, and albuterol nebulizer by the [facility] and the hospitalist service was consulted for admission. The patient was comfortable appearing she is on 5L oxymask now with SPO2 97% and HR decreased to 97. She endorses she is coughing up brown sputum. Patient will be admitted to for her multifactorial hypoxia, continue with diuretics, will add Abx therapy in form of Cefepime 1GM now and then every 8 hours, ECHO in morning and trend her HScTNI. COVID and Influenza A/B: NEGATIVE on admission Allergies Allergy/AdvReac Type Severity Reaction Status Date / Time No Known Allergies Allergy Verified 12/11/21 17:14 Home Medications Medication Instructions Recorded Confirmed Type aspirin 81 mg tablet,delayed 81 mg PO DAILY #90 tab 02/25/21 12/11/21 Rx release (Adult Low Dose Aspirin) cholecalciferol (vitamin D3) 50 50 mcg PO DAILY #90 cap 02/25/21 12/11/21 Rx mcg (2,000 unit) capsule levothyroxine 112 mcg tablet 112 mcg PO DAILY #90 tab 02/25/21 12/11/21 Rx metformin 850 mg tablet 850 mg PO BID #180 tab 02/25/21 12/11/21 Rx blood glucose control, normal #1 ea 03/15/21 12/11/21 Rx acetaminophen 325 mg tablet 650 mg PO BID #120 tab 06/05/21 12/11/21 Rx (Tylenol) blood sugar diagnostic (True #200 ea 06/05/21 12/11/21 Rx Metrix Glucose Test Strip) multivitamin 1 tab PO DAILY #30 tab 08/07/21 12/11/21 Rx furosemide 20 mg tablet (Lasix) 20 mg PO DAILY #90 tab 08/21/21 12/11/21 Rx metoprolol succinate 25 mg 25 mg PO DAILY #30 tab 09/18/21 12/11/21 Rx tablet,extended release 24 hr lisinopril 10 mg tablet 15 mg PO DAILY #30 tab 09/20/21 12/11/21 Rx venlafaxine 150 mg 150 mg PO DAILY #30 cap 09/23/21 12/11/21 Rx capsule,extended release 24 hr (Effexor XR) omeprazole 20 mg capsule,delayed 20 mg PO DAILY #30 cap 10/11/21 12/11/21 Rx release blood glucose control, high and #1 ea 10/24/21 12/11/21 Rx normal solution (Assure Dose Norm-Hi Control) ferrous sulfate 325 mg (65 mg 325 mg PO Q OTHER DAY #30 tab 11/14/21 12/11/21 Rx iron) tablet Polyethylene Glyco Drp 0.4-0.3 1 drp OPB TID 12/11/21 12/11/21 History acetaminophen 325 mg tablet 650 mg PO Q4 PRN 12/11/21 12/11/21 History (Tylenol) calcium carbonate 300 mg (750 mg) 300 mg PO BID 12/11/21 12/11/21 History chewable tablet (Tums E-X) melatonin 10 mg tablet 10 mg PO HS PRN 12/11/21 12/11/21 History ondansetron HCl 8 mg tablet 8 mg PO Q8 PRN 12/11/21 12/11/21 History pramipexole 1 mg tablet 1 mg PO HS 12/11/21 12/11/21 History prednisone 20 mg tablet 60 mg PO .DAY 1-5 OF CHEMO CY 12/11/21 12/11/21 History prochlorperazine maleate 10 mg 10 mg PO Q6 PRN 12/11/21 12/11/21 History tablet sennosides 8.6 mg-docusate sodium 1 tab-cap PO Q12 12/11/21 12/11/21 History 50 mg tablet (Senna-S) trazodone 100 mg tablet 100 mg PO HS 12/11/21 12/11/21 History Past Med/Surg History Medical History Anemia Anxiety Chronic obstructive pulmonary disease Depression Diabetes mellitus, type 2 History of anesthesia reaction LOW HEART RATE DURING LUNG SURG 03/2018 [facility] Hx of ulcer disease Hyperlipidemia Hypertension Hypothyroidism WAS HYPERTHYROID-RADIATION TREATMENT Osteoarthritis Restless leg syndrome Scoliosis Sleep apnea SOB (shortness of breath) on exertion STAIRS UTI symptoms Surgical History History of dilatation and curettage History of endoscopic sinus surgery History of lung surgery R LUNG NODULE REMOVAL-03/2018, Grade 2 view History of total hip arthroplasty R/L Family History Family/Other Family history of diabetes mellitus Other Family history of esophageal cancer Social History Smoking Status: Former smoker Cigarettes Per Day: 20; Second Hand Exposure: No; Do You Dip or Chew Tobacco: No; Tobacco Cessation Education Requested by Patient: No Hx Alcohol Use: No Hx Substance Use: No Preferred Language: Yakut Communication Ability: Effective Engineering Scientist Required: No Beliefs That Will Affect Care: None Current Living Situation: Personal Care Facility Other Information That Helps Us Care for You: No Feels Safe at Home: Yes Safety Concerns: Feels Safe At This Time Assistive Devices: Denture - Upper, Denture - Lower, Glasses, Hearing Aid - Bilateral, Oxygen - Continuous and Walker Review of Systems 2 Review of Systems: REVIEW OF SYSTEMS: Constitutional: No fever, sweats or chills Eyes: No diplopia, no worsening or blurred vision ENT: (+) difficulty hearing, no trouble swallowing Respiratory: (+) cough, sputum, dyspnea at rest or on exertion Cardiovascular: No chest pain, tightness or palpitations Abdomen: No pain, nausea, vomiting, diarrhea or constipation Musculoskeletal: No joint pain, calf pain, swelling Neurologic: No weakness, numbness/tingling, or balance problems Psychiatric: (+) depression Skin: No rash or itch Physical Exam Physical Exam: PHYSICAL EXAM: General: awake, alert, no apparent distress, poor short term memory recall Head: Normocephalic, atraumatic ENT: PERRL, EOMI, no pharyngeal exudate, mucous membranes dry, bilateral hearing aids Neuro: AAO x 3, speech clear and appropriate, strength intact bilaterally 5/5, sensation intact and equal all extremities and dermatomes, no pronator drift Chest: equal rise and fall of the chest, no accessory muscle use, scattered ronchi with expiratory wheeze, and egophony bilaterally Cardiac: Regular rate and rhythm, telemetry reviewed- NSR, skin warm dry, cap refill <3 seconds, peripheral pulses +2 no JVD, systolic high pitched murmur best heard mid axillary line left, trace lower extremity edema GI: NABS x 4 quadrants, soft, nontender to palpation, no rebound, guarding or tenderness : Spontaneously voiding, no pain, no CVA tenderness, Extremities: Normal inspection, no peripheral edema or erythema, calfs nontender to palpation Psych: Normal mood and affect Skin: no rash or erythema Results & Data Results & Data ([facility]) Vital Signs (Past 12 Hours) Vital Signs Temp Pulse Pulse Resp BP BP Pulse Ox 12/11/21 14:00 101 H 18 128/71 93 12/11/21 12:42 100 H 14 129/70 95 12/11/21 11:16 97 12/11/21 10:56 36.2 C L 96 H 20 116/67 80 L Laboratory Results Abnormal lab results 12/11/21 12/11/21 12/11/21 Range/Units 11:30 11:30 11:35 RBC 3.94 L (4.2-5.4) M/uL Hgb 9.5 L (12.0-16.0) g/dL Hct 32.1 L (37-47) % MCH 24.1 L (25-34) pg MCHC 29.6 L (32-36) g/dL RDW Std Deviation 52.1 H (36.4-46.3) fL RDW Coeff of Axel 18.0 H (11.5-14.5) % Neut # (Auto) 7.81 H (1.4-6.5) K/uL Lymph # (Auto) 0.54 L (1.2-3.4) K/uL Immature Gran # (Auto) 0.04 H (0.00-0.02) K/uL VBG pH 7.28 L (7.36-7.41) VBG pCO2 59 H (38-50) mmHg BUN/Creatinine Ratio 21.0 H (10-20) Glucose 133 H (70-99(Fasting)) mg/dl Troponin I High Sens 74.4 H* (0-14) pg/ml B-Natriuretic Peptide (0-100) pg/ml 04/20/22 Range/Units 12:49 RBC (4.2-5.4) M/uL Hgb (12.0-16.0) g/dL Hct (37-47) % MCH (25-34) pg MCHC (32-36) g/dL RDW Std Deviation (36.4-46.3) fL RDW Coeff of Axel (11.5-14.5) % Neut # (Auto) (1.4-6.5) K/uL Lymph # (Auto) (1.2-3.4) K/uL Immature Gran # (Auto) (0.00-0.02) K/uL VBG pH (7.36-7.41) VBG pCO2 (38-50) mmHg BUN/Creatinine Ratio (10-20) Glucose (70-99(Fasting)) mg/dl Troponin I High Sens (0-14) pg/ml B-Natriuretic Peptide 562 H (0-100) pg/ml Diagnostic Findings Chest CTA 12/11/21 11:11 CT angio chest PE protocol CLINICAL HISTORY: Dyspnea TECHNIQUE: Multidetector row helical CT of the chest was performed with angiographic protocol. Coronal and sagittal reformations were obtained. Coronal and sagittal MIPS were obtained from the axial data set and were submitted for review. Automated dose lowering techniques and/or adjustment according to patient size were utilized for this exam. Comparison: Comparison is made to CT chest 05/30/2020 FINDINGS: Lungs and pleura: Diffuse centrilobular emphysema is seen most prominent in the upper lobes. Groundglass opacities, Bronchial wall thickening and interlobular septal thickening are seen. Postsurgical changes are seen in the right apex, unchanged. Heart and pericardium: Cardiomegaly is seen with biatrial enlargement. Vessels: The pulmonary trunk is enlarged measuring 33 mm. No pulmonary embolus is seen. Mild atherosclerotic disease is seen. Mediastinum and lanette: Multiple mediastinal lymph nodes are seen measuring up to 11 mm in diameter Chest wall and lower neck: Unremarkable. Abdomen: Unremarkable. Bones: Degenerative changes in the thoracic spine. IMPRESSION: 1. No evidence of pulmonary embolism. 2. Pulmonary hypertension with groundglass opacities and smooth interlobular septal thickening which may represent moderate pulmonary edema. Superimposed pneumonia cannot be excluded. 3. Emphysema. 4. Mediastinal lymphadenopathy, increased from prior exam, which may be reactive. ACT 112: Negative or not required by law. Electronically signed by: Yunier Basurto M.D. 12/11/2021 1:41 PM Chest X-Ray 12/11/21 11:11 XR chest 1V portable HISTORY: Dyspnea COMPARISON: Chest 04/28/2018. FINDINGS: No pneumothorax. The heart is mildly enlarged. There are suture material seen within the right upper to midlung zone consistent with postoperative change. A right jugular Port-A-Cath range at the SVC. There are calcifications within the aortic knob. Coarse interstitial thickening is again noted. This is likely chronic. A few left basilar linear densities are noted. There are scarlike densities within the right upper lung zone. Suspect a trace right pleural effusion. IMPRESSION: 1. Cardiomegaly with mild central pulmonary vascular congestion without overt edema. 2. Emphysema. 3. Postoperative changes within the right lung again noted. 4. Trace right pleural effusion. 5. A few left basilar linear densities are nonspecific and may represent atelectasis. ACT 112: Negative or not required by law. Electronically signed by: Papa Wen M.D. 12/11/2021 11:42 AM Medications Administered Home Medications aspirin 81 mg tablet,delayed release (Adult Low Dose Aspirin) 81 mg PO DAILY #90 tab 02/25/21 [Rx Confirmed 11/14/21] calcium carbonate 320 mg calcium (750 mg) chewable tablet (Antacid (calcium carbonate)) 650 mg PO BID #180 tab 02/25/21 [Rx Confirmed 11/14/21] cholecalciferol (vitamin D3) 50 mcg (2,000 unit) capsule 50 mcg PO DAILY #90 cap 02/25/21 [Rx Confirmed 11/14/21] levothyroxine 112 mcg tablet 112 mcg PO DAILY #90 tab 02/25/21 [Rx Confirmed 11/14/21] metformin 850 mg tablet 850 mg PO BID #180 tab 02/25/21 [Rx Confirmed 11/14/21] pramipexole 1 mg tablet 1 mg PO DAILY #90 tab 02/25/21 [Rx Confirmed 11/14/21] blood glucose control, normal #1 ea 03/15/21 [Rx Confirmed 11/14/21] acetaminophen 325 mg tablet (Tylenol) 650 mg PO BID #120 tab 06/05/21 [Rx Confirmed 11/14/21] blood sugar diagnostic (True Metrix Glucose Test Strip) #200 ea 06/05/21 [Rx Confirmed 11/14/21] multivitamin 1 tab PO DAILY #30 tab 08/07/21 [Rx Confirmed 11/14/21] furosemide 20 mg tablet (Lasix) 20 mg PO DAILY #90 tab 08/21/21 [Rx Confirmed 11/14/21] metoprolol succinate 25 mg tablet,extended release 24 hr 25 mg PO DAILY #30 tab 09/18/21 [Rx Confirmed 11/14/21] lisinopril 10 mg tablet 15 mg PO DAILY #30 tab 09/20/21 [Rx Confirmed 11/14/21] venlafaxine 150 mg capsule,extended release 24 hr (Effexor XR) 150 mg PO DAILY #30 cap 09/23/21 [Rx Confirmed 11/14/21] triamcinolone acetonide 0.1 % topical cream 1 applic TOPICAL BID 10 Days #15 g 09/26/21 [Rx Confirmed 11/14/21] omeprazole 20 mg capsule,delayed release 20 mg PO DAILY #30 cap 10/11/21 [Rx Confirmed 11/14/21] melatonin 10 mg capsule 10 mg PO HS #90 cap 10/22/21 [Rx Confirmed 11/14/21] blood glucose control, high and normal solution (Assure Dose Norm-Hi Control) #1 ea 10/24/21 [Rx Confirmed 11/14/21] ferrous sulfate 325 mg (65 mg iron) tablet 325 mg PO Q OTHER DAY #30 tab 11/14/21 [Rx] trazodone 100 mg tablet 100 mg PO .qhs #30 tab 11/14/21 [Rx Confirmed 11/14/21] Active Medications Cefepime HCl 1,000 mg/ Syringe 11.3 mls @ 5.5 mls/min IV NOW STA; Protocol Stop: 12/11/21 14:54 Discontinued Medications Albuterol (Albut/Ipratrop 3mg/0.5mg Neb 3 Ml Vial) 3 ml INH NOW STA Stop: 12/11/21 11:12 Last Admin: 12/11/21 11:31 Dose: 3 ml Documented by: [id number] Ioversol (Optiray 320 125ml) 120 ml IV ONCE ONE Stop: 12/11/21 13:11 Last Admin: 12/11/21 13:10 Dose: 120 ml Documented by: [id number] Methylprednisolone (Methylprednisolone 125 Mg/2 Ml Vial) 125 mg IV NOW STA Stop: 12/11/21 13:30 Last Admin: 12/11/21 13:49 Dose: 125 mg Documented by: [id number] ECG Additional Comments: Normal sinus rhythm Right bundle branch block T wave abnormality, consider inferior ischemia Abnormal ECG When compared with ECG of 22-APR-2018 05:56, No significant change was found Code Status & VTE Plan Code Status CODE: DNR/DNI VTE: SCDS, Lovenox 40mg sq daily Supervising Physician Co-Signing Physician Notes I supervised JUSTA Garcia on this admission. I interviewed and examined the patient independently of him. The plan is as written in his note except for any following changes/exceptions: None 89yo F who was sent in from [facility] for respiratory distress at one of her visits. She is undergoing treatment for her B-cell lymphoma. Hypoxemia likely multifactorial with pulmonary edema and COPD playing the largest roles. As per his note, continue abx for now (can decrease as able), continue DuoNebs standing. Is on some steroids with her R-CHOP. CT chest shows substantial emphysema, so much of this may be related to chronic findings rather than acute process. PG Care Time/CCT Total # of Minutes Spent Total Time Spent with Patient: Total time spent is greater than 50% in coordination of care (as documented) at patient's floor/unit and/or counseling patient: Coding Level of Care Code 95774 Initial Inpt Care Lvl 3 Diagnoses Hypoxia R09.02 (HFpEF) heart failure with preserved ejection fraction I50.30 Mitral regurgitation I34.0 Hypothyroidism E03.9 Depression F32.9 Osteoarthritis M19.90 B-cell lymphoma C85.10 Hypertension I10 Diabetes mellitus, type 2 E11.9 Atrial flutter, paroxysmal I48.92 Elevated troponin I level R77.8 Adenocarcinoma C80.1 Non-small cell cancer of left lung C34.92 Anemia D64.9 Memory impairment R41.3 Insomnia G47.00 MRSA (methicillin resistant Staphylococcus aureus) A49.02
[2021-12-11] MEDS ORDERED: CEFEPIME 1,000 MG in SYRINGE 0 ML IV STA (14:52)
[2021-12-11] MEDS ORDERED: CEFEPIME 20 ML IV STA (15:06)
--- NOTE | 2021-12-11 15:45 | Electrocardiogram Report ---
Test Reason : Blood Pressure : / mmHG Vent. Rate : 094 BPM Atrial Rate : 094 BPM P-R Int : 162 ms QRS Dur : 138 ms QT Int : 402 ms P-R-T Axes : 043 070 -06 degrees QTc Int : 502 ms Normal sinus rhythm Right bundle branch block T wave abnormality, consider inferior ischemia Abnormal ECG When compared with ECG of 22-APR-2018 05:56, No significant change was found Confirmed by Lei Booker ([id number]) on 12/11/2021 3:45:04 PM Referred By: Confirmed By:Emery Booker
[2021-12-11] MEDS ORDERED: AZITHROMYCIN 500 MG in DEXTROSE 5% 250 ML IV STA (15:46)
[2021-12-11] MEDS ORDERED: GLUCOSE 10 TABS/TUBE PO PRN (17:07)
[2021-12-11] MEDS ORDERED: CARBOHYDRATES FOR HYPOGLYCEMIA PO PRN (17:07)
[2021-12-11] MEDS ORDERED: GLUCOSE 40% GEL 15 GM TUBE PO PRN (17:07)
[2021-12-11] MEDS ORDERED: ACETAMINOPHEN 325 MG TAB PO PRN (17:07)
[2021-12-11] MEDS ORDERED: DEXTROSE 50% 50 ML SYRINGE IV PRN (17:07)
[2021-12-11] MEDS ORDERED: GLUCAGON FOR INJ 1 MG VIAL SQ PRN (17:07)
[2021-12-11] MEDS ORDERED: MELATONIN 3 MG TAB PO PRN (17:22)
[2021-12-11 18:25] LABS: Iron 65 mcg/dl (35-150); Total Iron Binding Cap Calc 337 mcg/dl (250-450); Transferrin (FE) Percent Satur 19 % (15-50); Unsaturated Iron Binding Cap 272 mcg/dl (155-355)
[2021-12-11] MEDS: INSULIN ASPART PER UNIT SC SCH ×2 (18:52→21:22)
[2021-12-11] MEDS: ALBUT/IPRATROP 3MG/0.5MG NEB 3 ML VIAL NEB SCH (19:34)
[2021-12-11] MEDS: traZODone HCL 100 MG TAB PO SCH (21:09)
[2021-12-11] MEDS: CALCIUM CARBONATE 500 MG CHEWABLE TAB PO SCH (21:09)
[2021-12-11] MEDS: ENOXAPARIN INJ 40 MG/0.4 ML SYR SQ SCH (21:09)
[2021-12-11] MEDS: ACETAMINOPHEN 325 MG TAB PO SCH (21:10)
[2021-12-12] MEDS: ALBUT/IPRATROP 3MG/0.5MG NEB 3 ML VIAL NEB SCH ×4 (00:59→19:47)
[2021-12-12] MEDS ORDERED: CEFEPIME 2,000 MG in SYRINGE 0 ML IV SCH (04:00)
[2021-12-12] MEDS: LEVOTHYROXINE SODIUM 112 MCG TABLET PO SCH (05:54)
[2021-12-12 06:45] LABS: BUN Creatinine Ratio 23.8 (10-20); Calcium 8.7 mg/dl (8.5-10.1); Creatinine Clr Calc Pharmacy 17.2 ml/min; Est GFR (African American) 71.4 ml/min; Est GFR (Non-African American) 61.6 ml/min; Magnesium 1.5 mg/dl (1.7-2.4); Potassium 3.6 mmol/L (3.5-5.1)
[2021-12-12 07:08] LABS: Hematocrit (blood only) 31.5 % (37-47); Hemoglobin 9.4 g/dL (12.0-16.0); Mean Corpuscular Hemoglobin 24.7 pg (25-34); Mean Corpuscular Hgb Conc 29.8 g/dL (32-36); Mean Corpuscular Volume 82.7 fL (80-100); Mean Platelet Volume 9.5 fL (7.4-10.4); Platelet Count 337 K/uL (130-400); RDW Coefficient of Variation 18.6 % (11.5-14.5); RDW Standard Deviation 54.5 fL (36.4-46.3); Red Blood Count 3.81 M/uL (4.2-5.4); White Blood Count 41.65 K/uL (4.8-10.8)
[2021-12-12 07:15] LABS: Troponin I High Sensitivity 51.5 pg/ml (0-14)
[2021-12-12 07:22] LABS: Basophils # (auto) 0.03 K/uL (0-0.2); Basophils % (auto) 0.1 %; Eosinophils # (auto) 0.01 K/uL (0-0.5); Immature Granulocytes # (auto) 2.04 K/uL (0.00-0.02); Immature Granulocytes % (auto) 4.9 %; Lymphocytes # (auto) 1.12 K/uL (1.2-3.4); Lymphocytes % (auto) 2.7 %; Monocytes # (auto) 1.97 K/uL (0.11-0.59); Monocytes % (auto) 4.7 %; Neutrophils # (auto) 36.48 K/uL (1.4-6.5); Neutrophils % (auto) 87.6 %
[2021-12-12] MEDS: ACETAMINOPHEN 325 MG TAB PO SCH ×2 (08:22→21:05)
[2021-12-12] MEDS: CALCIUM CARBONATE 500 MG CHEWABLE TAB PO SCH ×2 (08:22→21:06)
[2021-12-12] MEDS: ASPIRIN 81 MG ECTAB PO SCH (08:22)
[2021-12-12] MEDS: CHOLECALCIFEROL 1,000 UNITS 25 MCG TAB PO SCH (08:23)
[2021-12-12] MEDS: lisinopril 5 MG TAB PO SCH (08:23)
[2021-12-12] MEDS: PANTOprazole 40 MG TAB PO SCH (08:24)
[2021-12-12] MEDS: VENLAFAXINE HCL XR 150 MG CAPXR PO SCH (08:24)
[2021-12-12] MEDS: PRAMIPEXOLE DIHYDROCHLO 0.5 MG TAB PO SCH (08:24)
[2021-12-12] MEDS: INSULIN ASPART PER UNIT SC SCH ×4 (08:25→21:07)
--- NOTE | 2021-12-12 08:42 | Cardiology Consultation ---
Date of Consultation December 12, 2021 Assessment & Plan (1) Acute and chronic respiratory failure with hypoxia: (2) (HFpEF) heart failure with preserved ejection fraction: (3) Atrial flutter, paroxysmal: (4) B-cell lymphoma: (5) Pneumonia: Patient admitted for acute respiratory failure with hypoxia secondary to pulm edema and likely underlying pneumonia after recent treatment for B.Cell Lymphoma. Symptoms improving since admission with IV furosemide, antibiotics, nebs, steroids. She had recent echo 1 month ago pre chemo treatment with preserved EF, moderate MR. HS troponin was mildly elevated on admission, likely in setting of acute hypoxia. She had no anginal symptoms and EKG was without ischemic changes. She remains chest pain free during admission. She has a remote history of paroxysmal atrial flutter in setting of acute pneumonia in Jun 2021. She was followed by [facility] and started on low dose metoprolol at that time. Repeat ZIO demonstrated sinus tach and SVT, but no recurrent atrial flutter. Given age, frailty, she was not started on anticoagulation therapy. Heart rates since admission remain in the 90-100 range, consistent with outpatient Heart rates. She had one brief run of possible atrial flutter vs atrial tach last night lasting approx 15 seconds. Will titrate metoprolol succinate to 25 mg BID. Continue antibiotics, steroids, nebs per hospitalist. I do not feel she needs additional diuretics based on volume status and symptoms at this time. Could consider future PRN dose of furosemide as outpatient. Case discussed with Dr. Billy. Will follow. Supervising Physician Co-Signing Physician Notes I have discussed the case with Ms. Newby. I have seen and evaluated the patient and reviewed the medical record. I agree with the plan as outlined above. History of Present Illness Reason for Consultation: Hypoxia; Elevated troponin Requesting Physician: JUST[facility] [place] Attending Physician: Dr. Billy History of Present Illness Patient is a 89 year old female who is known to [facility], Sudhakar Silverman PA-C, for episode of paroxysmal atrial flutter with RVR in setting of acute pneumonia during hospitalization in Jun 2021. At that time, echo revealed preserved EF. She converted to NSR with Cardizem. She was discharged on metoprolol succinate 25 mg daily. Follow up ZIO was without recurrent atrial arrhythmias. Anticoagulation was not recommended due to age, frailty. Other history includes HTN, RBBB, HLD, Dyspnea/COPD, DM II, Hypothyroidism/Graves disease, depression, anxiety, OA, colon mass, aflutter (07/14) in setting of MRSA pneumonia. Most recently patient was diagnosed with aggressive B-cell Lymphoma from IR guided biopsy of the right adrenal gland. Prior to starting chemotherapy, patient underwent echo in October 2021 demonstrating normal LV systolic function, moderate MR. This week patient was seeing her Oncologist for follow up after starting chemotherapy, when she became acutely short of breath and hypoxic. She was sent to the ER and noted to be hypoxic to recorded 80% on room air. On arrival to ER patient was treated with steroids, IV diuretics, nebs, and started on antibiotics. Chest CTA findings consistent with pulmonary edema, and likely pneumonia. EKG was without acute changes, demonstrating NSR with RBBB. HS troponin minimally elevated on arrival, but trending down, likely due to acute hypoxia. At time of consult patient laying supine, comfortably. Reports dyspnea/SOB has improved since admission. No cough. No fever. Denies recent chest pain. C ontinues to wear supplemental O2. No orthopnea, PND or edema. She reports this episode of SOB was "sudden". She reports she did not sleep well the night before admission, but attributed this to being anxious for oncology appointment/chemotherapy. She voices no acute complaints at this time. Anxious for discharge. Allergies Allergy/AdvReac Type Severity Reaction Status Date / Time No Known Allergies Allergy Verified 12/11/21 17:14 Home Medications Medication Instructions Recorded Confirmed Type aspirin 81 mg tablet,delayed 81 mg PO DAILY #90 tab 02/25/21 12/11/21 Rx release (Adult Low Dose Aspirin) cholecalciferol (vitamin D3) 50 50 mcg PO DAILY #90 cap 02/25/21 12/11/21 Rx mcg (2,000 unit) capsule levothyroxine 112 mcg tablet 112 mcg PO DAILY #90 tab 02/25/21 12/11/21 Rx metformin 850 mg tablet 850 mg PO BID #180 tab 02/25/21 12/11/21 Rx blood glucose control, normal #1 ea 03/15/21 12/11/21 Rx acetaminophen 325 mg tablet 650 mg PO BID #120 tab 06/05/21 12/11/21 Rx (Tylenol) blood sugar diagnostic (True #200 ea 06/05/21 12/11/21 Rx Metrix Glucose Test Strip) multivitamin 1 tab PO DAILY #30 tab 08/07/21 12/11/21 Rx furosemide 20 mg tablet (Lasix) 20 mg PO DAILY #90 tab 08/21/21 12/11/21 Rx metoprolol succinate 25 mg 25 mg PO DAILY #30 tab 09/18/21 12/11/21 Rx tablet,extended release 24 hr lisinopril 10 mg tablet 15 mg PO DAILY #30 tab 09/20/21 12/11/21 Rx venlafaxine 150 mg 150 mg PO DAILY #30 cap 09/23/21 12/11/21 Rx capsule,extended release 24 hr (Effexor XR) omeprazole 20 mg capsule,delayed 20 mg PO DAILY #30 cap 10/11/21 12/11/21 Rx release blood glucose control, high and #1 ea 10/24/21 12/11/21 Rx normal solution (Assure Dose Norm-Hi Control) ferrous sulfate 325 mg (65 mg 325 mg PO Q OTHER DAY #30 tab 11/14/21 12/11/21 Rx iron) tablet Polyethylene Glyco Drp 0.4-0.3 1 drp OPB TID 12/11/21 12/11/21 History acetaminophen 325 mg tablet 650 mg PO Q4 PRN 12/11/21 12/11/21 History (Tylenol) calcium carbonate 300 mg (750 mg) 300 mg PO BID 12/11/21 12/11/21 History chewable tablet (Tums E-X) melatonin 10 mg tablet 10 mg PO HS PRN 12/11/21 12/11/21 History ondansetron HCl 8 mg tablet 8 mg PO Q8 PRN 12/11/21 12/11/21 History pramipexole 1 mg tablet 1 mg PO HS 12/11/21 12/11/21 History prednisone 20 mg tablet 60 mg PO .DAY 1-5 OF CHEMO CY 12/11/21 12/11/21 History prochlorperazine maleate 10 mg 10 mg PO Q6 PRN 12/11/21 12/11/21 History tablet sennosides 8.6 mg-docusate sodium 1 tab-cap PO Q12 12/11/21 12/11/21 History 50 mg tablet (Senna-S) trazodone 100 mg tablet 100 mg PO HS 12/11/21 12/11/21 History Patient History Medical History Anemia Anxiety Chronic obstructive pulmonary disease Depression Diabetes mellitus, type 2 History of anesthesia reaction LOW HEART RATE DURING LUNG SURG 03/2018 [facility] Hx of ulcer disease Hyperlipidemia Hypertension Hypothyroidism WAS HYPERTHYROID-RADIATION TREATMENT Osteoarthritis Restless leg syndrome Scoliosis Sleep apnea SOB (shortness of breath) on exertion STAIRS UTI symptoms Surgical History History of dilatation and curettage History of endoscopic sinus surgery History of lung surgery R LUNG NODULE REMOVAL-03/2018, Grade 2 view History of total hip arthroplasty R/L Family History Family/Other Family history of diabetes mellitus Other Family history of esophageal cancer Social History Smoking Status: Former smoker Cigarettes Per Day: 20; Second Hand Exposure: No; Do You Dip or Chew Tobacco: No; Tobacco Cessation Education Requested by Patient: No Hx Alcohol Use: No Hx Substance Use: No Preferred Language: Luxembourgish Communication Ability: Effective Proposal Manager Required: No Beliefs That Will Affect Care: None marital status: / Current Living Situation: Personal Care Facility Other Information That Helps Us Care for You: No Feels Safe at Home: Yes Safety Concerns: Feels Safe At This Time Assistive Devices: Walker Review of Systems Review of Systems: All systems reviewed & are unremarkable except as noted in HPI & below Physical Exam Constitutional: WD/WN, vitals as above + thin; no acute distress Neck: trachea midline, no thyromegaly Respiratory: able to speak in complete sentences; no respiratory distress Auscultation: + crackles (scattered left sided ) Cardiovascular: Rate/Rhythm: regular rate, regular rhythm and + tachycardic Heart Sounds: + murmur (II/ systolic murmur at apex ) Gastrointestinal (Abdomen): normal bowel sounds, soft, nontender, no hepatosplenomegaly Neurologic: PERRL, EOMI, accommodation nl, no face palsy, no dysarthria Psychiatric: A+Ox3, euthymic affect Results & Data ([facility]) Vital Signs (Past 12 Hours) Vital Signs Temp Pulse Pulse Resp BP Pulse Ox 12/12/21 07:21 98 H 16 91 12/12/21 06:38 36.6 C 104 H 18 120/69 97 12/12/21 06:14 99 H 12/12/21 03:11 36.6 C 96 H 18 127/71 95 12/12/21 01:00 103 H 14 94 12/11/21 23:00 36.7 C 102 H 18 98/60 L 94 12/11/21 22:20 108 H Laboratory Results 12/12/21 12/12/21 12/12/21 Range/Units 07:18 05:51 05:51 WBC 41.65 H* D (4.8-10.8) K/uL RBC 3.81 L (4.2-5.4) M/uL Hgb 9.4 L (12.0-16.0) g/dL Hct 31.5 L (37-47) % MCV 82.7 (80-100) fL MCH 24.7 L (25-34) pg MCHC 29.8 L (32-36) g/dL RDW Std Deviation 54.5 H (36.4-46.3) fL RDW Coeff of Axel 18.6 H (11.5-14.5) % Plt Count 337 (130-400) K/uL MPV 9.5 (7.4-10.4) fL Immature Gran % (Auto) 4.9 % Neut % (Auto) 87.6 % Lymph % (Auto) 2.7 % [place] % (Auto) 4.7 % Eos % (Auto) 0.0 % Baso % (Auto) 0.1 % Neut # (Auto) 36.48 H (1.4-6.5) K/uL Lymph # (Auto) 1.12 L (1.2-3.4) K/uL [place] # (Auto) 1.97 H (0.11-0.59) K/uL Eos # (Auto) 0.01 (0-0.5) K/uL Baso # (Auto) 0.03 (0-0.2) K/uL Immature Gran # (Auto) 2.04 H (0.00-0.02) K/uL PT (9.0-12.0) Seconds INR (0.9-1.1) VBG pH (7.36-7.41) VBG pCO2 (38-50) mmHg VBG pO2 mmHg VBG HCO3 mmol/L VBG O2 Saturation % VBG Base Excess mEq/L Barometric Pressure mm/Hg Sodium 139 (136-145) mmol/L Potassium 3.6 (3.5-5.1) mmol/L Chloride 103 (98-107) mmol/L Carbon Dioxide 27 (21-32) mmol/L Anion Gap 9 (3-11) BUN 20 (6-23) mg/dl Creatinine 0.84 (0.6-1.2) mg/dl Est Cr Clr Drug Dosing 17.2 Est GFR ( Amer) 71.4 ml/min Est GFR (Non-Af Amer) 61.6 ml/min BUN/Creatinine Ratio 23.8 H (10-20) Glucose 77 (70-99(Fasting)) mg/dl POC Glucose 111 H (70-99) mg/dl Calcium 8.7 (8.5-10.1) mg/dl Magnesium 1.5 L (1.7-2.4) mg/dl Iron 189 H (35-150) mcg/dl TIBC (250-450) mcg/dl Unsaturated IBC (155-355) mcg/dl Transferrin % Sat (15-50) % Total Bilirubin (0.2-1.0) mg/dl AST (13-39) U/L ALT (7-52) U/L Alkaline Phosphatase (34-104) U/L Troponin I High Sens 51.5 H* D (0-14) pg/ml B-Natriuretic Peptide (0-100) pg/ml Total Protein (6.0-8.3) gm/dl Albumin (3.4-5.0) gm/dl Globulin (2.5-4.0) gm/dl Albumin/Globulin Ratio (0.9-2) Procalcitonin (0-0.5) ng/ml Urine Color Urine Appearance (Clear) Urine pH (4.5-7.5) Ur Specific [place] (1.000-1.030) Urine Protein (Negative) Urine Glucose (UA) (Negative) Urine Ketones (Negative) Urine Blood (Negative) Urine Nitrite (Negative) Urine Bilirubin (Negative) Urine Urobilinogen (Negative) Ur Leukocyte Esterase (Negative) Nasal Screen MRSA (PCR) (Negative) SARS-CoV-2 (PCR) (Negative) Influenza Type A (PCR) (Neg) Influenza Type B (PCR) (Neg) RSV (RT-PCR) (Neg) 12/11/21 12/11/21 12/11/21 Range/Units Unknown 20:20 19:51 WBC (4.8-10.8) K/uL RBC (4.2-5.4) M/uL Hgb (12.0-16.0) g/dL Hct (37-47) % MCV (80-100) fL MCH (25-34) pg MCHC (32-36) g/dL RDW Std Deviation (36.4-46.3) fL RDW Coeff of Axel (11.5-14.5) % Plt Count (130-400) K/uL MPV (7.4-10.4) fL Immature Gran % (Auto) % Neut % (Auto) % Lymph % (Auto) % [place] % (Auto) % Eos % (Auto) % Baso % (Auto) % Neut # (Auto) (1.4-6.5) K/uL Lymph # (Auto) (1.2-3.4) K/uL [place] # (Auto) (0.11-0.59) K/uL Eos # (Auto) (0-0.5) K/uL Baso # (Auto) (0-0.2) K/uL Immature Gran # (Auto) (0.00-0.02) K/uL PT (9.0-12.0) Seconds INR (0.9-1.1) VBG pH (7.36-7.41) VBG pCO2 (38-50) mmHg VBG pO2 mmHg VBG HCO3 mmol/L VBG O2 Saturation % VBG Base Excess mEq/L Barometric Pressure mm/Hg Sodium (136-145) mmol/L Potassium (3.5-5.1) mmol/L Chloride (98-107) mmol/L Carbon Dioxide (21-32) mmol/L Anion Gap (3-11) BUN (6-23) mg/dl Creatinine (0.6-1.2) mg/dl Est Cr Clr Drug Dosing Est GFR ( Amer) ml/min Est GFR (Non-Af Amer) ml/min BUN/Creatinine Ratio (10-20) Glucose (70-99(Fasting)) mg/dl POC Glucose 235 H (70-99) mg/dl Calcium (8.5-10.1) mg/dl Magnesium (1.7-2.4) mg/dl Iron (35-150) mcg/dl TIBC (250-450) mcg/dl Unsaturated IBC (155-355) mcg/dl Transferrin % Sat (15-50) % Total Bilirubin (0.2-1.0) mg/dl AST (13-39) U/L ALT (7-52) U/L Alkaline Phosphatase (34-104) U/L Troponin I High Sens 65.3 H* (0-14) pg/ml B-Natriuretic Peptide (0-100) pg/ml Total Protein (6.0-8.3) gm/dl Albumin (3.4-5.0) gm/dl Globulin (2.5-4.0) gm/dl Albumin/Globulin Ratio (0.9-2) Procalcitonin (0-0.5) ng/ml Urine Color Urine Appearance (Clear) Urine pH (4.5-7.5) Ur Specific [place] (1.000-1.030) Urine Protein (Negative) Urine Glucose (UA) (Negative) Urine Ketones (Negative) Urine Blood (Negative) Urine Nitrite (Negative) Urine Bilirubin (Negative) Urine Urobilinogen (Negative) Ur Leukocyte Esterase (Negative) Nasal Screen MRSA (PCR) Negative (Negative) SARS-CoV-2 (PCR) (Negative) Influenza Type A (PCR) (Neg) Influenza Type B (PCR) (Neg) RSV (RT-PCR) (Neg) 12/11/21 12/11/21 12/11/21 Range/Units 17:26 15:02 15:02 WBC (4.8-10.8) K/uL RBC (4.2-5.4) M/uL Hgb (12.0-16.0) g/dL Hct (37-47) % MCV (80-100) fL MCH (25-34) pg MCHC (32-36) g/dL RDW Std Deviation (36.4-46.3) fL RDW Coeff of Axel (11.5-14.5) % Plt Count (130-400) K/uL MPV (7.4-10.4) fL Immature Gran % (Auto) % Neut % (Auto) % Lymph % (Auto) % [place] % (Auto) % Eos % (Auto) % Baso % (Auto) % Neut # (Auto) (1.4-6.5) K/uL Lymph # (Auto) (1.2-3.4) K/uL [place] # (Auto) (0.11-0.59) K/uL Eos # (Auto) (0-0.5) K/uL Baso # (Auto) (0-0.2) K/uL Immature Gran # (Auto) (0.00-0.02) K/uL PT (9.0-12.0) Seconds INR (0.9-1.1) VBG pH (7.36-7.41) VBG pCO2 (38-50) mmHg VBG pO2 mmHg VBG HCO3 mmol/L VBG O2 Saturation % VBG Base Excess mEq/L Barometric Pressure mm/Hg Sodium (136-145) mmol/L Potassium (3.5-5.1) mmol/L Chloride (98-107) mmol/L Carbon Dioxide (21-32) mmol/L Anion Gap (3-11) BUN (6-23) mg/dl Creatinine (0.6-1.2) mg/dl Est Cr Clr Drug Dosing Est GFR ( Amer) ml/min Est GFR (Non-Af Amer) ml/min BUN/Creatinine Ratio (10-20) Glucose (70-99(Fasting)) mg/dl POC Glucose 180 H (70-99) mg/dl Calcium (8.5-10.1) mg/dl Magnesium (1.7-2.4) mg/dl Iron 65 (35-150) mcg/dl TIBC 337 (250-450) mcg/dl Unsaturated IBC 272 (155-355) mcg/dl Transferrin % Sat 19 (15-50) % Total Bilirubin (0.2-1.0) mg/dl AST (13-39) U/L ALT (7-52) U/L Alkaline Phosphatase (34-104) U/L Troponin I High Sens 73.4 H* (0-14) pg/ml B-Natriuretic Peptide (0-100) pg/ml Total Protein (6.0-8.3) gm/dl Albumin (3.4-5.0) gm/dl Globulin (2.5-4.0) gm/dl Albumin/Globulin Ratio (0.9-2) Procalcitonin (0-0.5) ng/ml Urine Color Urine Appearance (Clear) Urine pH (4.5-7.5) Ur Specific [place] (1.000-1.030) Urine Protein (Negative) Urine Glucose (UA) (Negative) Urine Ketones (Negative) Urine Blood (Negative) Urine Nitrite (Negative) Urine Bilirubin (Negative) Urine Urobilinogen (Negative) Ur Leukocyte Esterase (Negative) Nasal Screen MRSA (PCR) (Negative) SARS-CoV-2 (PCR) (Negative) Influenza Type A (PCR) (Neg) Influenza Type B (PCR) (Neg) RSV (RT-PCR) (Neg) 12/11/21 12/11/21 12/11/21 Range/Units 13:20 13:20 12:49 WBC (4.8-10.8) K/uL RBC (4.2-5.4) M/uL Hgb (12.0-16.0) g/dL Hct (37-47) % MCV (80-100) fL MCH (25-34) pg MCHC (32-36) g/dL RDW Std Deviation (36.4-46.3) fL RDW Coeff of Axel (11.5-14.5) % Plt Count (130-400) K/uL MPV (7.4-10.4) fL Immature Gran % (Auto) % Neut % (Auto) % Lymph % (Auto) % [place] % (Auto) % Eos % (Auto) % Baso % (Auto) % Neut # (Auto) (1.4-6.5) K/uL Lymph # (Auto) (1.2-3.4) K/uL [place] # (Auto) (0.11-0.59) K/uL Eos # (Auto) (0-0.5) K/uL Baso # (Auto) (0-0.2) K/uL Immature Gran # (Auto) (0.00-0.02) K/uL PT (9.0-12.0) Seconds INR (0.9-1.1) VBG pH (7.36-7.41) VBG pCO2 (38-50) mmHg VBG pO2 mmHg VBG HCO3 mmol/L VBG O2 Saturation % VBG Base Excess mEq/L Barometric Pressure mm/Hg Sodium (136-145) mmol/L Potassium (3.5-5.1) mmol/L Chloride (98-107) mmol/L Carbon Dioxide (21-32) mmol/L Anion Gap (3-11) BUN (6-23) mg/dl Creatinine (0.6-1.2) mg/dl Est Cr Clr Drug Dosing Est GFR ( Amer) ml/min Est GFR (Non-Af Amer) ml/min BUN/Creatinine Ratio (10-20) Glucose (70-99(Fasting)) mg/dl POC Glucose (70-99) mg/dl Calcium (8.5-10.1) mg/dl Magnesium (1.7-2.4) mg/dl Iron (35-150) mcg/dl TIBC (250-450) mcg/dl Unsaturated IBC (155-355) mcg/dl Transferrin % Sat (15-50) % Total Bilirubin (0.2-1.0) mg/dl AST (13-39) U/L ALT (7-52) U/L Alkaline Phosphatase (34-104) U/L Troponin I High Sens (0-14) pg/ml B-Natriuretic Peptide 562 H (0-100) pg/ml Total Protein (6.0-8.3) gm/dl Albumin (3.4-5.0) gm/dl Globulin (2.5-4.0) gm/dl Albumin/Globulin Ratio (0.9-2) Procalcitonin (0-0.5) ng/ml Urine Color Yellow Urine Appearance Clear (Clear) Urine pH 5.0 (4.5-7.5) Ur Specific [place] 1.017 (1.000-1.030) Urine Protein Negative (Negative) Urine Glucose (UA) Negative (Negative) Urine Ketones Negative (Negative) Urine Blood Negative (Negative) Urine Nitrite Negative (Negative) Urine Bilirubin Negative (Negative) Urine Urobilinogen Negative (Negative) Ur Leukocyte Esterase Negative (Negative) Nasal Screen MRSA (PCR) (Negative) SARS-CoV-2 (PCR) NEGATIVE (Negative) Influenza Type A (PCR) Negative (Neg) Influenza Type B (PCR) Negative (Neg) RSV (RT-PCR) Negative (Neg) 12/11/21 12/11/21 12/11/21 Range/Units 11:35 11:30 11:30 WBC (4.8-10.8) K/uL RBC (4.2-5.4) M/uL Hgb (12.0-16.0) g/dL Hct (37-47) % MCV (80-100) fL MCH (25-34) pg MCHC (32-36) g/dL RDW Std Deviation (36.4-46.3) fL RDW Coeff of Axel (11.5-14.5) % Plt Count (130-400) K/uL MPV (7.4-10.4) fL Immature Gran % (Auto) % Neut % (Auto) % Lymph % (Auto) % [place] % (Auto) % Eos % (Auto) % Baso % (Auto) % Neut # (Auto) (1.4-6.5) K/uL Lymph # (Auto) (1.2-3.4) K/uL [place] # (Auto) (0.11-0.59) K/uL Eos # (Auto) (0-0.5) K/uL Baso # (Auto) (0-0.2) K/uL Immature Gran # (Auto) (0.00-0.02) K/uL PT 11.1 (9.0-12.0) Seconds INR 1.0 (0.9-1.1) VBG pH 7.28 L (7.36-7.41) VBG pCO2 59 H (38-50) mmHg VBG pO2 40 mmHg VBG HCO3 27 mmol/L VBG O2 Saturation 66.0 % VBG Base Excess 0 mEq/L Barometric Pressure 738.2 mm/Hg Sodium (136-145) mmol/L Potassium (3.5-5.1) mmol/L Chloride (98-107) mmol/L Carbon Dioxide (21-32) mmol/L Anion Gap (3-11) BUN (6-23) mg/dl Creatinine (0.6-1.2) mg/dl Est Cr Clr Drug Dosing Est GFR ( Amer) ml/min Est GFR (Non-Af Amer) ml/min BUN/Creatinine Ratio (10-20) Glucose (70-99(Fasting)) mg/dl POC Glucose (70-99) mg/dl Calcium (8.5-10.1) mg/dl Magnesium (1.7-2.4) mg/dl Iron (35-150) mcg/dl TIBC (250-450) mcg/dl Unsaturated IBC (155-355) mcg/dl Transferrin % Sat (15-50) % Total Bilirubin (0.2-1.0) mg/dl AST (13-39) U/L ALT (7-52) U/L Alkaline Phosphatase (34-104) U/L Troponin I High Sens (0-14) pg/ml B-Natriuretic Peptide (0-100) pg/ml Total Protein (6.0-8.3) gm/dl Albumin (3.4-5.0) gm/dl Globulin (2.5-4.0) gm/dl Albumin/Globulin Ratio (0.9-2) Procalcitonin < 0.05 (0-0.5) ng/ml Urine Color Urine Appearance (Clear) Urine pH (4.5-7.5) Ur Specific [place] (1.000-1.030) Urine Protein (Negative) Urine Glucose (UA) (Negative) Urine Ketones (Negative) Urine Blood (Negative) Urine Nitrite (Negative) Urine Bilirubin (Negative) Urine Urobilinogen (Negative) Ur Leukocyte Esterase (Negative) Nasal Screen MRSA (PCR) (Negative) SARS-CoV-2 (PCR) (Negative) Influenza Type A (PCR) (Neg) Influenza Type B (PCR) (Neg) RSV (RT-PCR) (Neg) 12/11/21 12/11/21 Range/Units 11:30 11:30 WBC 8.67 (4.8-10.8) K/uL RBC 3.94 L (4.2-5.4) M/uL Hgb 9.5 L (12.0-16.0) g/dL Hct 32.1 L (37-47) % MCV 81.5 (80-100) fL MCH 24.1 L (25-34) pg MCHC 29.6 L (32-36) g/dL RDW Std Deviation 52.1 H (36.4-46.3) fL RDW Coeff of Axel 18.0 H (11.5-14.5) % Plt Count 363 (130-400) K/uL MPV 8.9 (7.4-10.4) fL Immature Gran % (Auto) 0.5 % Neut % (Auto) 90.1 % Lymph % (Auto) 6.2 % [place] % (Auto) 2.4 % Eos % (Auto) 0.3 % Baso % (Auto) 0.5 % Neut # (Auto) 7.81 H (1.4-6.5) K/uL Lymph # (Auto) 0.54 L (1.2-3.4) K/uL [place] # (Auto) 0.21 (0.11-0.59) K/uL Eos # (Auto) 0.03 (0-0.5) K/uL Baso # (Auto) 0.04 (0-0.2) K/uL Immature Gran # (Auto) 0.04 H (0.00-0.02) K/uL PT (9.0-12.0) Seconds INR (0.9-1.1) VBG pH (7.36-7.41) VBG pCO2 (38-50) mmHg VBG pO2 mmHg VBG HCO3 mmol/L VBG O2 Saturation % VBG Base Excess mEq/L Barometric Pressure mm/Hg Sodium 138 (136-145) mmol/L Potassium 4.0 (3.5-5.1) mmol/L Chloride 106 (98-107) mmol/L Carbon Dioxide 26 (21-32) mmol/L Anion Gap 6 (3-11) BUN 17 (6-23) mg/dl Creatinine 0.81 (0.6-1.2) mg/dl Est Cr Clr Drug Dosing Not Reportable Est GFR ( Amer) 74.6 ml/min Est GFR (Non-Af Amer) 64.4 ml/min BUN/Creatinine Ratio 21.0 H (10-20) Glucose 133 H (70-99(Fasting)) mg/dl POC Glucose (70-99) mg/dl Calcium 8.5 (8.5-10.1) mg/dl Magnesium (1.7-2.4) mg/dl Iron (35-150) mcg/dl TIBC (250-450) mcg/dl Unsaturated IBC (155-355) mcg/dl Transferrin % Sat (15-50) % Total Bilirubin 0.2 (0.2-1.0) mg/dl AST 22 (13-39) U/L ALT 24 (7-52) U/L Alkaline Phosphatase 75 (34-104) U/L Troponin I High Sens 74.4 H* (0-14) pg/ml B-Natriuretic Peptide (0-100) pg/ml Total Protein 6.5 (6.0-8.3) gm/dl Albumin 3.6 (3.4-5.0) gm/dl Globulin 2.9 (2.5-4.0) gm/dl Albumin/Globulin Ratio 1.2 (0.9-2) Procalcitonin (0-0.5) ng/ml Urine Color Urine Appearance (Clear) Urine pH (4.5-7.5) Ur Specific [place] (1.000-1.030) Urine Protein (Negative) Urine Glucose (UA) (Negative) Urine Ketones (Negative) Urine Blood (Negative) Urine Nitrite (Negative) Urine Bilirubin (Negative) Urine Urobilinogen (Negative) Ur Leukocyte Esterase (Negative) Nasal Screen MRSA (PCR) (Negative) SARS-CoV-2 (PCR) (Negative) Influenza Type A (PCR) (Neg) Influenza Type B (PCR) (Neg) RSV (RT-PCR) (Neg) Diagnostic Findings Telemetry reviewed: NSR, Sinus tachycardia with underlying conduction delay (RBBB known). She had one episode of possible atrial flutter at 2:13 AM lasting approx 10-15 seconds, resolving sponateously. EKG on admission: Normal sinus rhythm Right bundle branch block T wave abnormality, consider inferior ischemia Abnormal ECG When compared with ECG of 22-APR-2018 05:56, No significant change was found Repeat EKG 12/12/21: Sinus tachycardia at 103 bpm Possible Left atrial enlargement Right bundle branch block Abnormal ECG When compared with ECG of 11-DEC-2021 11:16, No significant change was found Chest CTA on admission, report reviewed: IMPRESSION: 1. No evidence of pulmonary embolism. 2. Pulmonary hypertension with groundglass opacities and smooth interlobular se ptal thickening which may represent moderate pulmonary edema. Superimposed pneumonia cannot be excluded. 3. Emphysema. 4. Mediastinal lymphadenopathy, increased from prior exam, which may be reactiv e. Chest Xray report reviewed from admission: IMPRESSION: 1. Cardiomegaly with mild central pulmonary vascular congestion without overt edema. 2. Emphysema. 3. Postoperative changes within the right lung again noted. 4. Trace right pleural effusion. 5. A few left basilar linear densities are nonspecific and may represent atelectasis. Recent echo reviewed, dated 11/12/21 at [facility]: The qualitative LV ejection fraction is 60-64% (normal). The global longitudinal strain (GLS) is - 16 %. Normal left ventricular systolic function is suggested if GLS is -14% to -30% Mild aortic valve regurgitation is present. Moderate mitral regurgitation is present.The mitral regurgitation jet is posteriorly directed. Difficult quantification based on eccentricity. Mild tricuspid regurgitation is present.The estimated pulmonary artery systolic pressure is 40mm Hg. Normal IVC size and collapsability with inspiration indicates a normal right atrial pressure of 3 mmHg. Medications Administered Current Inpatient Medications Acetaminophen (Acetaminophen 325 Mg Tab) 650 mg PO Q4H PRN PRN Reason: Pain or Fever Stop: 01/10/22 17:06 Acetaminophen (Acetaminophen 325 Mg Tab) 650 mg PO BID LAURE Stop: 01/10/22 20:59 Last Admin: 12/12/21 08:22 Dose: 650 mg Documented by: Albuterol (Albut/Ipratrop 3mg/0.5mg Neb 3 Ml Vial) 3 ml NEB Q6R LAURE; Protocol Stop: 01/10/22 18:59 Last Admin: 12/12/21 07:19 Dose: 3 ml Documented by: Aspirin (Aspirin 81 Mg Ectab) 81 mg PO DAILY LAURE Stop: 01/11/22 08:59 Last Admin: 12/12/21 08:22 Dose: 81 mg Documented by: Calcium Carbonate (Calcium Carbonate 500 Mg Chewable Tab) 1,000 mg PO BID LAURE Stop: 01/10/22 20:59 Last Admin: 12/12/21 08:22 Dose: 1,000 mg Documented by: Dextrose (Dextrose 50% 50 Ml Syringe) 25 - 50 ml IV UD PRN; Protocol PRN Reason: Hypoglycemia Protocol Stop: 01/10/22 17:06 Enoxaparin Sodium (Enoxaparin Inj 40 Mg/0.4 Ml Syr) 40 mg SQ Q24H LAURE Stop: 01/10/22 20:59 Last Admin: 12/11/21 21:09 Dose: 40 mg Documented by: Ferrous Sulfate (Ferrous Sulfate 325 Mg Tab) 325 mg PO Q2D LAURE Stop: 01/12/22 08:59 Glucagon (Glucagon For Inj 1 Mg Vial) 1 mg SQ UD PRN; Protocol PRN Reason: Hypoglycemia Protocol Stop: 01/10/22 17:06 Glucose (Glucose 10 Tabs/Tube) 4 - 8 tabs PO UD PRN; Protocol PRN Reason: Hypoglycemia Protocol Stop: 01/10/22 17:06 Glucose (Glucose 40% Gel 15 Gm Tube) 15 - 30 gm PO UD PRN; Protocol PRN Reason: Hypoglycemia Protocol Stop: 01/10/22 17:06 Cefepime HCl 2,000 mg/ Syringe 20 mls @ 5 mls/min IV Q12H LAURE; Protocol Stop: 12/19/21 03:59 Last Admin: 12/12/21 03:37 Dose: 5 mls/min Documented by: Azithromycin 250 mg/ Dextrose 252.5 mls @ 125 mls/hr IV Q24H LAURE Stop: 12/19/21 15:59 Magnesium Sulfate/Dextrose (Magnesium Sulfate / D5w) 1 gm in 100 mls @ 50 mls/hr IV Q2H LAURE Stop: 12/12/21 12:44 Insulin Aspart (Insulin Aspart Per Unit) 0 units SC ACHS LAURE Stop: 01/10/22 17:06 Last Admin: 12/12/21 08:25 Dose: 1 units Documented by: Levothyroxine Sodium (Levothyroxine Sodium 112 Mcg Tablet) 112 mcg PO DAILYBB LAURE Stop: 01/11/22 06:29 Last Admin: 12/12/21 05:54 Dose: 112 mcg Documented by: Lisinopril (Lisinopril 5 Mg Tab) 15 mg PO DAILY LAURE Stop: 01/11/22 08:59 Last Admin: 12/12/21 08:23 Dose: 15 mg Documented by: Melatonin (Melatonin 3 Mg Tab) 9 mg PO HSZ PRN PRN Reason: Sleep Stop: 01/10/22 17:21 Last Admin: 12/12/21 01:20 Dose: 9 mg Documented by: Metoprolol Succinate (Metoprolol Succ 25mg Ext Rel Tab) 25 mg PO DAILY LAURE Stop: 01/11/22 08:59 Last Admin: 12/12/21 08:24 Dose: 25 mg Documented by: Miscellaneous (Carbohydrates For Hypoglycemia ) 15 - 30 gm PO UD PRN PRN Reason: Hypoglycemia Protocol Stop: 01/10/22 17:06 Pantoprazole Sodium (Pantoprazole 40 Mg Tab) 40 mg PO DAILY LAURE Stop: 01/11/22 08:59 Last Admin: 12/12/21 08:24 Dose: 40 mg Documented by: Pramipexole Dihydrochloride (Pramipexole Dihydrochlo 0.5 Mg Tab) 1 mg PO DAILY LAURE Stop: 01/11/22 08:59 Last Admin: 12/12/21 08:24 Dose: 1 mg Documented by: Trazodone HCl (Trazodone Hcl 100 Mg Tab) 100 mg PO HS ALURE Stop: 01/10/22 20:59 Last Admin: 12/11/21 21:09 Dose: 100 mg Documented by: Venlafaxine HCl (Venlafaxine Hcl Xr 150 Mg Capxr) 150 mg PO DAILY LAURE Stop: 01/11/22 08:59 Last Admin: 12/12/21 08:24 Dose: 150 mg Documented by: Vitamin D (Cholecalciferol 1,000 Units 25 Mcg Tab) 2,000 units PO DAILY LAURE Stop: 01/11/22 08:59 Last Admin: 12/12/21 08:23 Dose: 2,000 units Documented by: (1) Pneumonia Laterality: bilateral Lung location: lower lobe of lung Pneumonia type: due to unspecified organism Qualified Code(s): J18.1 - Lobar pneumonia, unspecified organism
[2021-12-12] MEDS ORDERED: METOPROLOL SUCC 25MG EXT REL TAB PO SCH (09:00)
[2021-12-12] MEDS: MAGNESIUM SULFATE / D5W 1 GM/100 ML BAG IV SCH ×2 (09:37→11:27)
[2021-12-12 14:58] LABS: Adenovirus PCR Not Detected (NotDetected); Bordetella parapertussis PCR Not Detected (NotDetected); Bordetella pertussis PCR Not Detected (NotDetected); Chlamydia pneumoniae PCR Not Detected (NotDetected); Coronavirus 229E PCR Not Detected (NotDetected); Coronavirus CoV-2 (COVID19)PCR Not Detected (NotDetected); Coronavirus HKU1 PCR Not Detected (NotDetected); Coronavirus NL63 PCR Not Detected (NotDetected); Coronavirus OC43PCR Not Detected (NotDetected); Human Metapneumovirus PCR Not Detected (NotDetected); Influenza A PCR Not Detected (NotDetected); Influenza B PCR Not Detected (NotDetected); Mycoplasma pneumoniae PCR Not Detected (NotDetected); Parainfluenza Virus 1 PCR Not Detected (NotDetected); Parainfluenza Virus 2 PCR Not Detected (NotDetected); Parainfluenza Virus 3 PCR Not Detected (NotDetected); Parainfluenza Virus 4 PCR Not Detected (NotDetected); Respiratory Syncytial VirusPCR Not Detected (NotDetected); Rhinovirus/Enterovirus PCR Not Detected (NotDetected)
[2021-12-12] MEDS ORDERED: AZITHROMYCIN 250 MG in DEXTROSE 5% 250 ML IV SCH (16:00)
--- NOTE | 2021-12-12 18:02 | Hospitalist Progress Note ---
Date of Service December 12, 2021 Assessment & Plan (1) Hypoxia: Plan: Acute hypoxia multifactorial to include pulmonary edema, COPD, patient has a negative procalcitonin and negative bio fire for respiratory viruses - COVID and Influenza negative - Endorses sputum production, remain afebrile, marked leukocytosis but did receive Neulasta - PCT suggesting bacterial sepsis - Cefepime 1GM IV q8 hours now- as she is immunocompromised consider de- escalation in 48 hours to oral azithromycin only - Azithromycin for COPD component as well as atypical coverage - patient was MRSA swab positive with her pneumonia in 07/14 at [facility]-current MRSA swab negative - With her component of pulmonary edema- follow with CXR in the morning following diuresing - Continue with Albuterol scheduled q6 hour for 24 hours - She received 125mg solumedrol IV in the EMD- Hold further dosing at this time CT scan of her chest on 12/11/2021 was groundglass opacities and smooth interlobular septal thickening which cannot be interpreted as infectious or pulmonary edema recommend treatment for both the subtle lymphadenopathy is increased which may be reactive and COPD changes are seen (2) (HFpEF) heart failure with preserved ejection fraction: Plan: Previous ECHO review with grade I diastolic dysfunction with EF 60-65 % and mild MR- 07/14- she may have recent - follows with [facility] - ECHO in am - evaluate for any toxicity or change from her initiation of R-CHOP- again she is cycle #2- may have updated ECHO prior to initiaton of chemo- this is not available to confirm or review - BNP 562 - Given 20mg IV lasix in EMD - Repeat evening of 420 schedule daily Lasix dosing patient usually on 20 a day will increase to 40 a day on 12/13/2021 (3) B-cell lymphoma: Plan: Per chart review from [facility]- Agressive B-cell lymphoma right adrenal biopsy - R-CHOP as above cycle 2 - [facility] leukocytosis without atypical cells presently did receive Neulasta in the office (4) Elevated troponin I level: Plan: HScTNI elevated at 74 upon presentation to EMD - 2 hour reflex-73.4 - She is without complaints of angina and ECG reviewed without any dyanamic changes when compared to 05-JUL-21 ECG - This is demand type II from her hypoxia and pulmonary congestion, increased HR on arrival - Not known to have CAD (5) Mitral regurgitation: Plan: Mild noted on previous ECHO -Echocardiogram shows preserved ejection fraction dilated left atrium mild to moderate mitral regurg no regional wall motion abnormalities -Continue daily diuretic - Continue Metoprolol (6) Hypothyroidism: Plan: Continue synthroid 112mcg (7) Depression: Plan: Continue Venlafaxine (8) Osteoarthritis: Plan: Continue tylenol (9) Hypertension: Plan: Continue BB and Lisinopril 15 mg PO daily (10) Diabetes mellitus, type 2: Plan: Hold Metformin - Insulin Aspart Sliding scale- CF 20 with 1:15 carb ratio (11) Atrial flutter, paroxysmal: Plan: Noted on hospitalization in [facility] in Jul 14 - She had ZIO monitor following this - copy sent with hard chart - She is not on anticoagulation as discussed in cardiology consultation chart record - Continue with Metoprolol (12) Adenocarcinoma: Plan: Ileocecal vavlve diagnosed 02/08 - resected in 2017- biopsies for liver and blayne invovlment reported as negative (13) Non-small cell cancer of left lung: Plan: Stage I NSCLC diagnosed 2017- s/p resection 2018 - remains with mediastinal lymphadenoapthy (14) Anemia: Plan: chronic microcytic- continue ferrous sulfate PO - iron panel shows iron is elevated binding capacity is normal transferrin is normal transferrin saturations appropriate (15) Memory impairment: Plan: Pramipexole (16) Insomnia: Plan: continue her melatonin continue trazodone to avoid withdraw- although likely not needed as she sleeps through the day as review of her half-way notes and discussion with her neice - the pateint reportedly does not sleep at night (17) MRSA (methicillin resistant Staphylococcus aureus): Plan: MRSA nares positive 07/14- with hospitalization for pneumonia - she was discharged home on Augmentin/Doxycycline are MRSA nares are negative. She is off isolation at this time Admission and Anticipated Discharge Date Admission Date: December 11, 2021 Subjective pt is pleasant but fairly forgetful, she is in no distress and claims to feel improved, noted to have large jump in wbc but did have neulasta in office 12/11/21 Review of Systems Review of Systems: Mild distress and increased fatigue no headache, no visual changes no speech or swallowing issues no chest pain, pressure or palpitations shortness of breath, productive cough no abdominal pain, nausea or vomiting, diarrhea or constipation no dysuria, hematuria or frequency no focal joint pain or swelling no back pain, CVA tenderness or radicular pain no bruising, bleeding or rashes no focal signs of weakness or numbness or altered sensation no complaints of anxiety or depression.. Physical Exam Physical Exam: The patient appeared and although her BMI is 25 she is 4 feet 11, 123 pounds, mildly tachypneic to conversation Vital signs as documented. Head exam is normocephalic atraumatic Neck is without JVD, thyromegaly, or carotid bruits. Lungs are diminished without focal loss no rhonchi or egophony Cardiac exam, tachycardic with systolic ejection murmur Abdominal exam reveals normal bowel sounds, soft non tender, no masses Extremities are nonedematous and both pedal pulses are present Neurologic exam is alert and oriented x2 no focal loss of strength or sensation Skin is without bruises or rashes Psychologically is without concerns for anxiety or depression.. Results & Data Results & Data ([facility]) Vital Signs (Past 12 Hours) Vital Signs Temp Pulse Pulse Resp BP Pulse Ox 12/12/21 15:52 95 H 12/12/21 15:18 98.4 F 99 H 20 101/58 L 90 12/12/21 13:25 91 H 16 90 12/12/21 11:07 98.4 F 104 H 20 127/79 92 12/12/21 07:21 98 H 16 91 12/12/21 06:38 97.9 F 104 H 18 120/69 97 12/12/21 06:14 99 H PG Care Time/CCT Total # of Minutes Spent Total Time Spent with Patient: Total time spent is greater than 50% in coordination of care (as documented) at patient's floor/unit and/or counseling patient: Coding Level of Care Code 00120 Subseq Hosp Care Lvl 3 Diagnoses Hypoxia R09.02 (HFpEF) heart failure with preserved ejection fraction I50.30 B-cell lymphoma C85.10 Elevated troponin I level R77.8 Mitral regurgitation I34.0 Hypothyroidism E03.9 Depression F32.9 Osteoarthritis M19.90 Hypertension I10 Diabetes mellitus, type 2 E11.9 Atrial flutter, paroxysmal I48.92 Adenocarcinoma C80.1 Non-small cell cancer of left lung C34.92 Anemia D64.9 Memory impairment R41.3 Insomnia G47.00 MRSA (methicillin resistant Staphylococcus aureus) A49.02
--- NOTE | 2021-12-12 18:02 | Electrocardiogram Report ---
Test Reason : Blood Pressure : / mmHG Vent. Rate : 103 BPM Atrial Rate : 103 BPM P-R Int : 154 ms QRS Dur : 140 ms QT Int : 398 ms P-R-T Axes : 036 064 018 degrees QTc Int : 521 ms Sinus tachycardia Possible Left atrial enlargement Right bundle branch block Abnormal ECG When compared with ECG of 11-DEC-2021 11:16, No significant change was found Confirmed by Lei Booker ([id number]) on 12/12/2021 6:02:32 PM Referred By: Delilah Colon Confirmed By:Emery Booker
[2021-12-12] MEDS ORDERED: HEPARIN 100 UNIT/ML 5ML FLUSH ONE (18:22)
--- NOTE | 2021-12-12 18:29 | Hospitalist Progress Note ---
Date of Service December 12, 2021 Assessment & Plan (1) Hypoxia: Plan: * Acute respiratory failure with hypoxia treated resolved with O2, Duonebs, IV Lasix, and IV Solumedrol, Acute hypoxia multifactorial to include pulmonary edema, COPD, patient has a negative procalcitonin and negative bio fire for respiratory viruses - COVID and Influenza negative - Endorses sputum production, remain afebrile, marked leukocytosis but did receive Neulasta - PCT suggesting bacterial sepsis - Cefepime 1GM IV q8 hours now- as she is immunocompromised consider de- escalation in 48 hours to oral azithromycin only - Azithromycin for COPD component as well as atypical coverage - patient was MRSA swab positive with her pneumonia in 07/14 at [facility] [address] [facility]-current MRSA swab negative - With her component of pulmonary edema- follow with CXR in the morning follow ing diuresing - Continue with Albuterol scheduled q6 hour for 24 hours - She received 125mg solumedrol IV in the EMD- Hold further dosing at this time CT scan of her chest on 12/11/2021 was groundglass opacities and smooth interlobular septal thickening which cannot be interpreted as infectious or pulmonary edema recommend treatment for both the subtle lymphadenopathy is increased which may be reactive and COPD changes are seen (2) (HFpEF) heart failure with preserved ejection fraction: Plan: hfpef Previous ECHO review with grade I diastolic dysfunction with EF 60-65 % and mild MR- 07/14- she may have recent - follows with [facility] - ECHO in am - evaluate for any toxicity or change from her initiation of R-CHOP- again she is cycle #2- may have updated ECHO prior to initiaton of chemo- this is not available to confirm or review - BNP 562 - Given 20mg IV lasix in EMD - Repeat evening of 420 schedule daily Lasix dosing patient usually on 20 a day will increase to 40 a day on 12/13/2021 (3) B-cell lymphoma: Plan: Per chart review from [facility]- Agressive B-cell lymphoma right adrenal biopsy - R-CHOP as above cycle 2 - [facility] leukocytosis without atypical cells presently did receive Neulasta in the office (4) Elevated troponin I level: Plan: HScTNI elevated at 74 upon presentation to EMD - 2 hour reflex-73.4 - She is without complaints of angina and ECG reviewed without any dyanamic changes when compared to 05-JUL-21 ECG - This is demandischemia type II IN from her hypoxia and pulmonary congestion, increased HR on arrival - Not known to have CAD (5) Mitral regurgitation: Plan: Mild noted on previous ECHO -Echocardiogram shows preserved ejection fraction dilated left atrium mild to moderate mitral regurg no regional wall motion abnormalities -Continue daily diuretic - Continue Metoprolol (6) Hypothyroidism: Plan: Continue synthroid 112mcg (7) Depression: Plan: Continue Venlafaxine (8) Osteoarthritis: Plan: Continue tylenol (9) Hypertension: Plan: Continue BB and Lisinopril 15 mg PO daily (10) Diabetes mellitus, type 2: Plan: Hold Metformin - Insulin Aspart Sliding scale- CF 20 with 1:15 carb ratio (11) Atrial flutter, paroxysmal: Plan: Noted on hospitalization in [facility] in Jul 14 - She had ZIO monitor following this - copy sent with hard chart - She is not on anticoagulation as discussed in cardiology consultation chart record - Continue with Metoprolol (12) Adenocarcinoma: Plan: Ileocecal vavlve diagnosed 02/08 - resected in 2018- biopsies for liver and blayne invovlment reported as negative (13) Non-small cell cancer of left lung: Plan: Stage I NSCLC diagnosed 2017- s/p resection 2018 - remains with mediastinal lymphadenoapthy (14) Anemia: Plan: chronic microcytic- continue ferrous sulfate PO - iron panel shows iron is elevated binding capacity is normal transferrin is normal transferrin saturations appropriate (15) Memory impairment: Plan: Pramipexole (16) Insomnia: Plan: continue her melatonin continue trazodone to avoid withdraw- although likely not needed as she sleeps through the day as review of her [facility] notes and discussion with her neice - the pateint reportedly does not sleep at night (17) MRSA (methicillin resistant Staphylococcus aureus): Plan: MRSA nares positive 07/14- with hospitalization for pneumonia - she was discharged home on Augmentin/Doxycycline are MRSA nares are negative. She is off isolation at this time Admission and Anticipated Discharge Date Admission Date: December 11, 2021 Results & Data Results & Data ([facility]) Vital Signs (Past 12 Hours) Vital Signs Temp Pulse Pulse Resp BP Pulse Ox 12/12/21 15:52 95 H 12/12/21 15:18 98.4 F 99 H 20 101/58 L 90 12/12/21 13:25 91 H 16 90 12/12/21 11:07 98.4 F 104 H 20 127/79 92 12/12/21 07:21 98 H 16 91 12/12/21 06:38 97.9 F 104 H 18 120/69 97 PG Care Time/CCT Total # of Minutes Spent Total Time Spent with Patient: Total time spent is greater than 50% in coordination of care (as documented) at patient's floor/unit and/or counseling patient: Coding Level of Care Code None Diagnoses Hypoxia R09.02 (HFpEF) heart failure with preserved ejection fraction I50.30 B-cell lymphoma C85.10 Elevated troponin I level R77.8 Mitral regurgitation I34.0 Hypothyroidism E03.9 Depression F32.9 Osteoarthritis M19.90 Hypertension I10 Diabetes mellitus, type 2 E11.9 Atrial flutter, paroxysmal I48.92 Adenocarcinoma C80.1 Non-small cell cancer of left lung C34.92 Anemia D64.9 Memory impairment R41.3 Insomnia G47.00 MRSA (methicillin resistant Staphylococcus aureus) A49.02
[2021-12-12] MEDS ORDERED: HEPARIN 100 UNIT/ML 5ML FLUSH FLUSH PRN (18:34)
[2021-12-12] MEDS ORDERED: DEXTROSE 70% IV SCH (18:45)
[2021-12-12] MEDS ORDERED: [UNRECOGNIZED DRUG - OTHER] IV SCH (18:45)
[2021-12-12] MEDS ORDERED: HEPARIN 100 UNIT/ML IV SCH (18:45)
[2021-12-12] MEDS: ENOXAPARIN INJ 40 MG/0.4 ML SYR SQ SCH (21:05)
[2021-12-12] MEDS: METOPROLOL SUCC 25MG EXT REL TAB PO SCH (21:06)
[2021-12-12] MEDS: traZODone HCL 100 MG TAB PO SCH (21:06)
[2021-12-13] MEDS: ALBUT/IPRATROP 3MG/0.5MG NEB 3 ML VIAL NEB SCH ×2 (01:21→07:16)
[2021-12-13] MEDS ORDERED: CEFEPIME 2,000 MG in SYRINGE 0 ML IV SCH ×2 (04:00→16:00)
[2021-12-13] MEDS: LEVOTHYROXINE SODIUM 112 MCG TABLET PO SCH (05:07)
--- NOTE | 2021-12-13 08:15 | Cardiology Progress Note ---
Date of Service December 13, 2021 Assessment & Plan (1) Acute and chronic respiratory failure with hypoxia: (2) (HFpEF) heart failure with preserved ejection fraction: (3) Atrial flutter, paroxysmal: (4) B-cell lymphoma: (5) Pneumonia: Plan: Patient admitted for acute respiratory failure with hypoxia secondary to pulm edema and possible underlying pneumonia after recent treatment for B.Cell Lymphoma. Symptoms improved since admission with IV furosemide, antibiotics, nebs, steroids. She had recent echo 1 month ago pre chemo treatment with preserved EF, moderate MR. Repeat echo with stable findings. HS troponin was mildly elevated on admission, likely in setting of acute hypoxia. Not indicative of ACS. She had no anginal symptoms and EKG was without ischemic changes. She remains chest pain free during admission. Recommend and agree with titration of oral furosemide to 40 mg daily. Monitor BMP as outpatient. She has a remote history of paroxysmal atrial flutter in setting of acute pneumonia in Jun 2021. She was followed by [facility] and started on low dose metoprolol at that time. Repeat ZIO demonstrated sinus tach and SVT, but no recurrent atrial flutter. Given age, frailty, she was not started on anticoagulation therapy. Heart rates since admission remain in the 90-100 range, consistent with outpatient Heart rates. She had one brief run of possible atrial flutter vs atrial tach after admission. No recurrence. Metoprolol increased to 25 mg BID. Continue on discharge. Continue antibiotics, steroids, nebs per hospitalist. Stable cardiac symptoms. No further cardiac testing warranted at this time. Case discussed with Dr. Billy. Admission and Anticipated Discharge Date Admission Date: December 11, 2021 Supervising Physician Co-Signing Physician Notes I have discussed the case with Odin. I have seen and examined the patient and reviewed the medical record. I agree with the plan as outlined. Subjective Patient resting in bed comfortably. She reports her SOB has improved from admission. No cough, fever, chills. Remains on supplemental O2. No chest pain. Transitioned to oral furosemide 40 mg this morning. No orthopnea, PND or increased edema. Review of Systems Review of Systems: All systems reviewed & are unremarkable except as noted in HPI & below Physical Exam Constitutional: WD/WN, vitals as above + thin; no acute distress Neck: trachea midline, no thyromegaly Respiratory: able to speak in complete sentences; no respiratory distress Auscultation: lungs clear to auscultation bilaterally; no crackles Cardiovascular: Rate/Rhythm: regular rate, regular rhythm and + tachycardic Heart Sounds: + murmur (II/ systolic murmur at apex ) Gastrointestinal (Abdomen): normal bowel sounds, soft, nontender, no hepatosplenomegaly Neurologic: PERRL, EOMI, accommodation nl, no face palsy, no dysarthria Psychiatric: A+Ox3, euthymic affect Results & Data ([facility]) Vital Signs (Past 12 Hours) Vital Signs Temp Pulse Pulse Resp BP Pulse Ox 12/13/21 08:07 100 H 12/13/21 07:16 98 H 16 94 12/13/21 06:40 36.6 C 92 H 18 100/62 94 12/13/21 02:39 36.4 C L 93 H 18 113/63 90 12/13/21 01:21 90 18 93 12/12/21 22:34 36.6 C 93 H 18 120/68 92 12/12/21 22:17 86 Laboratory Results 12/13/21 12/13/21 12/13/21 Range/Units 07:51 07:51 07:39 WBC 36.50 H* (4.8-10.8) K/uL RBC 3.97 L (4.2-5.4) M/uL Hgb 9.7 L (12.0-16.0) g/dL Hct 32.1 L (37-47) % MCV 80.9 (80-100) fL MCH 24.4 L (25-34) pg MCHC 30.2 L (32-36) g/dL RDW Std Deviation 53.0 H (36.4-46.3) fL RDW Coeff of Axel 18.5 H (11.5-14.5) % Plt Count 264 (130-400) K/uL MPV 9.5 (7.4-10.4) fL Neutrophils % (Manual) 95.6 % Lymphocytes % (Manual) 2.6 % Monocytes % (Manual) 1.8 % Neutrophils # (Manual) 34.89 H (1.4-6.5) K/uL Total Absolute Neuts 34.89 H (1.4-6.5) K/uL Lymphocytes # (Manual) 0.95 L (1.2-3.4) K/uL Total Abs Lymphocytes 0.95 L (1.2-3.4) K/uL Monocytes # (Manual) 0.66 H (0.11-0.59) K/uL Platelet Estimate Normal (Normal) Sodium 138 (136-145) mmol/L Potassium 3.9 (3.5-5.1) mmol/L Chloride 103 (98-107) mmol/L Carbon Dioxide 30 (21-32) mmol/L Anion Gap 5 (3-11) BUN 19 (6-23) mg/dl Creatinine 0.70 (0.6-1.2) mg/dl Est Cr Clr Drug Dosing 41.5 ml/min Est GFR ( Amer) 89.0 ml/min Est GFR (Non-Af Amer) 76.8 ml/min BUN/Creatinine Ratio 27.1 H (10-20) Glucose 107 H (70-99(Fasting)) mg/dl POC Glucose 133 H (70-99) mg/dl Calcium 8.6 (8.5-10.1) mg/dl Magnesium 1.9 (1.7-2.4) mg/dl Procalcitonin (0-0.5) ng/ml Adenovirus (PCR) (NotDetected) B. pertussis DNA (PCR) (NotDetected) B.parapertussis DNA PCR (NotDetected) C. pneumoniae DNA (PCR) (NotDetected) Coronavirus OC43 (PCR) (NotDetected) Coronavirus HKU1 (PCR) (NotDetected) Coronavirus 229E (PCR) (NotDetected) SARS-CoV-2 (PCR) (NotDetected) Coronavirus NL63 (PCR) (NotDetected) Human Metapneumovir PCR (NotDetected) Influenza Type A (PCR) (NotDetected) Influenza Type B (PCR) (NotDetected) M. pneumoniae (PCR) (NotDetected) Parainfluenza 1 (PCR) (NotDetected) Parainfluenza 2 (PCR) (NotDetected) Parainfluenza 3 (PCR) (NotDetected) Parainfluenza 4 (PCR) (NotDetected) RSV (PCR) (NotDetected) Entero/Rhino (PCR) (NotDetected) 12/12/21 12/12/21 12/12/21 Range/Units 19:58 16:32 13:13 WBC (4.8-10.8) K/uL RBC (4.2-5.4) M/uL Hgb (12.0-16.0) g/dL Hct (37-47) % MCV (80-100) fL MCH (25-34) pg MCHC (32-36) g/dL RDW Std Deviation (36.4-46.3) fL RDW Coeff of Axel (11.5-14.5) % Plt Count (130-400) K/uL MPV (7.4-10.4) fL Neutrophils % (Manual) % Lymphocytes % (Manual) % Monocytes % (Manual) % Neutrophils # (Manual) (1.4-6.5) K/uL Total Absolute Neuts (1.4-6.5) K/uL Lymphocytes # (Manual) (1.2-3.4) K/uL Total Abs Lymphocytes (1.2-3.4) K/uL Monocytes # (Manual) (0.11-0.59) K/uL Platelet Estimate (Normal) Sodium (136-145) mmol/L Potassium (3.5-5.1) mmol/L Chloride (98-107) mmol/L Carbon Dioxide (21-32) mmol/L Anion Gap (3-11) BUN (6-23) mg/dl Creatinine (0.6-1.2) mg/dl Est Cr Clr Drug Dosing ml/min Est GFR ( Amer) ml/min Est GFR (Non-Af Amer) ml/min BUN/Creatinine Ratio (10-20) Glucose (70-99(Fasting)) mg/dl POC Glucose 172 H 161 H (70-99) mg/dl Calcium (8.5-10.1) mg/dl Magnesium (1.7-2.4) mg/dl Procalcitonin (0-0.5) ng/ml Adenovirus (PCR) Not Detected (NotDetected) B. pertussis DNA (PCR) Not Detected (NotDetected) B.parapertussis DNA PCR Not Detected (NotDetected) C. pneumoniae DNA (PCR) Not Detected (NotDetected) Coronavirus OC43 (PCR) Not Detected (NotDetected) Coronavirus HKU1 (PCR) Not Detected (NotDetected) Coronavirus 229E (PCR) Not Detected (NotDetected) SARS-CoV-2 (PCR) Not Detected (NotDetected) Coronavirus NL63 (PCR) Not Detected (NotDetected) Human Metapneumovir PCR Not Detected (NotDetected) Influenza Type A (PCR) Not Detected (NotDetected) Influenza Type B (PCR) Not Detected (NotDetected) M. pneumoniae (PCR) Not Detected (NotDetected) Parainfluenza 1 (PCR) Not Detected (NotDetected) Parainfluenza 2 (PCR) Not Detected (NotDetected) Parainfluenza 3 (PCR) Not Detected (NotDetected) Parainfluenza 4 (PCR) Not Detected (NotDetected) RSV (PCR) Not Detected (NotDetected) Entero/Rhino (PCR) Not Detected (NotDetected) 12/12/21 12/12/21 Range/Units 11:22 09:09 WBC (4.8-10.8) K/uL RBC (4.2-5.4) M/uL Hgb (12.0-16.0) g/dL Hct (37-47) % MCV (80-100) fL MCH (25-34) pg MCHC (32-36) g/dL RDW Std Deviation (36.4-46.3) fL RDW Coeff of Axel (11.5-14.5) % Plt Count (130-400) K/uL MPV (7.4-10.4) fL Neutrophils % (Manual) % Lymphocytes % (Manual) % Monocytes % (Manual) % Neutrophils # (Manual) (1.4-6.5) K/uL Total Absolute Neuts (1.4-6.5) K/uL Lymphocytes # (Manual) (1.2-3.4) K/uL Total Abs Lymphocytes (1.2-3.4) K/uL Monocytes # (Manual) (0.11-0.59) K/uL Platelet Estimate (Normal) Sodium (136-145) mmol/L Potassium (3.5-5.1) mmol/L Chloride (98-107) mmol/L Carbon Dioxide (21-32) mmol/L Anion Gap (3-11) BUN (6-23) mg/dl Creatinine (0.6-1.2) mg/dl Est Cr Clr Drug Dosing ml/min Est GFR ( Amer) ml/min Est GFR (Non-Af Amer) ml/min BUN/Creatinine Ratio (10-20) Glucose (70-99(Fasting)) mg/dl POC Glucose 152 H (70-99) mg/dl Calcium (8.5-10.1) mg/dl Magnesium (1.7-2.4) mg/dl Procalcitonin 0.23 (0-0.5) ng/ml Adenovirus (PCR) (NotDetected) B. pertussis DNA (PCR) (NotDetected) B.parapertussis DNA PCR (NotDetected) C. pneumoniae DNA (PCR) (NotDetected) Coronavirus OC43 (PCR) (NotDetected) Coronavirus HKU1 (PCR) (NotDetected) Coronavirus 229E (PCR) (NotDetected) SARS-CoV-2 (PCR) (NotDetected) Coronavirus NL63 (PCR) (NotDetected) Human Metapneumovir PCR (NotDetected) Influenza Type A (PCR) (NotDetected) Influenza Type B (PCR) (NotDetected) M. pneumoniae (PCR) (NotDetected) Parainfluenza 1 (PCR) (NotDetected) Parainfluenza 2 (PCR) (NotDetected) Parainfluenza 3 (PCR) (NotDetected) Parainfluenza 4 (PCR) (NotDetected) RSV (PCR) (NotDetected) Entero/Rhino (PCR) (NotDetected) 12/13/21 12/12/21 12/12/21 Range/Units 07:39 19:58 16:32 POC Glucose 133 H 172 H 161 H (70-99) mg/dl Procalcitonin (0-0.5) ng/ml Adenovirus (PCR) (NotDetected) B. pertussis DNA (PCR) (NotDetected) B.parapertussis DNA PCR (NotDetected) C. pneumoniae DNA (PCR) (NotDetected) Coronavirus OC43 (PCR) (NotDetected) Coronavirus HKU1 (PCR) (NotDetected) Coronavirus 229E (PCR) (NotDetected) SARS-CoV-2 (PCR) (NotDetected) Coronavirus NL63 (PCR) (NotDetected) Human Metapneumovir PCR (NotDetected) Influenza Type A (PCR) (NotDetected) Influenza Type B (PCR) (NotDetected) M. pneumoniae (PCR) (NotDetected) Parainfluenza 1 (PCR) (NotDetected) Parainfluenza 2 (PCR) (NotDetected) Parainfluenza 3 (PCR) (NotDetected) Parainfluenza 4 (PCR) (NotDetected) RSV (PCR) (NotDetected) Entero/Rhino (PCR) (NotDetected) 12/12/21 12/12/21 12/12/21 Range/Units 13:13 11:22 09:09 POC Glucose 152 H (70-99) mg/dl Procalcitonin 0.23 (0-0.5) ng/ml Adenovirus (PCR) Not Detected (NotDetected) B. pertussis DNA (PCR) Not Detected (NotDetected) B.parapertussis DNA PCR Not Detected (NotDetected) C. pneumoniae DNA (PCR) Not Detected (NotDetected) Coronavirus OC43 (PCR) Not Detected (NotDetected) Coronavirus HKU1 (PCR) Not Detected (NotDetected) Coronavirus 229E (PCR) Not Detected (NotDetected) SARS-CoV-2 (PCR) Not Detected (NotDetected) Coronavirus NL63 (PCR) Not Detected (NotDetected) Human Metapneumovir PCR Not Detected (NotDetected) Influenza Type A (PCR) Not Detected (NotDetected) Influenza Type B (PCR) Not Detected (NotDetected) M. pneumoniae (PCR) Not Detected (NotDetected) Parainfluenza 1 (PCR) Not Detected (NotDetected) Parainfluenza 2 (PCR) Not Detected (NotDetected) Parainfluenza 3 (PCR) Not Detected (NotDetected) Parainfluenza 4 (PCR) Not Detected (NotDetected) RSV (PCR) Not Detected (NotDetected) Entero/Rhino (PCR) Not Detected (NotDetected) Diagnostic Findings Telemetry reviewed: Sinus and sinus tach with heart rates ranging 90-110. No recurrent atrial tach or atrial flutter. EKG this morning, 12/13/21: Normal sinus rhythm Right bundle branch block Abnormal ECG compared with ECG of 12-DEC-2021 05:58, No significant change was found Echo report reviewed dated 12/12/21: LV is normal in size. LV systolic function is normal with EF 60-65% RV systolic function is normal LA is moderately dilated RA size is normal Mild to mod MR Mild TR Medications Administered Current Inpatient Medications Acetaminophen (Acetaminophen 325 Mg Tab) 650 mg PO Q4H PRN PRN Reason: Pain or Fever Stop: 01/10/22 17:06 Acetaminophen (Acetaminophen 325 Mg Tab) 650 mg PO BID [facility] Stop: 01/10/22 20:59 Last Admin: 12/12/21 21:05 Dose: 650 mg Documented by: Albuterol (Albut/Ipratrop 3mg/0.5mg Neb 3 Ml Vial) 3 ml NEB Q6R LAURE; Protocol Stop: 01/10/22 18:59 Last Admin: 12/13/21 07:16 Dose: 3 ml Documented by: Aspirin (Aspirin 81 Mg Ectab) 81 mg PO DAILY [facility]URE Stop: 01/11/22 08:59 Last Admin: 12/12/21 08:22 Dose: 81 mg Documented by: Calcium Carbonate (Calcium Carbonate 500 Mg Chewable Tab) 1,000 mg PO BID LAURE Stop: 01/10/22 20:59 Last Admin: 12/12/21 21:06 Dose: 1,000 mg Documented by: Dextrose (Dextrose 50% 50 Ml Syringe) 25 - 50 ml IV UD PRN; Protocol PRN Reason: Hypoglycemia Protocol Stop: 01/10/22 17:06 Enoxaparin Sodium (Enoxaparin Inj 40 Mg/0.4 Ml Syr) 40 mg SQ Q24H [facility]URE Stop: 01/10/22 20:59 Last Admin: 12/12/21 21:05 Dose: 40 mg Documented by: Ferrous Sulfate (Ferrous Sulfate 325 Mg Tab) 325 mg PO Q2D LAURE Stop: 01/12/22 08:59 Furosemide (Furosemide 40 Mg Tab) 40 mg PO QAM LAURE Stop: 01/12/22 08:59 Glucagon (Glucagon For Inj 1 Mg Vial) 1 mg SQ UD PRN; Protocol PRN Reason: Hypoglycemia Protocol Stop: 01/10/22 17:06 Glucose (Glucose 10 Tabs/Tube) 4 - 8 tabs PO UD PRN; Protocol PRN Reason: Hypoglycemia Protocol Stop: 01/10/22 17:06 Glucose (Glucose 40% Gel 15 Gm Tube) 15 - 30 gm PO UD PRN; Protocol PRN Reason: Hypoglycemia Protocol Stop: 01/10/22 17:06 Heparin Sodium (Porcine) (Heparin 100 Unit/Ml 5ml Flush) 5 ml FLUSH PRN PRN PRN Reason: Flush Stop: 01/11/22 18:33 Azithromycin 250 mg/ Dextrose 252.5 mls @ 125 mls/hr IV Q24H [facility] Stop: 12/19/21 15:59 Last Infusion: 12/12/21 18:02 Dose: Infused Documented by: Cefepime HCl 2,000 mg/ Syringe 20 mls @ 5 mls/min IV Q24H [facility]; Protocol Stop: 12/20/21 03:59 Last Admin: 12/13/21 03:45 Dose: 5 mls/min Documented by: Insulin Aspart (Insulin Aspart Per Unit) 0 units SC ACHS [facility] Stop: 01/10/22 17:06 Last Admin: 12/12/21 21:07 Dose: 2 units Documented by: Levothyroxine Sodium (Levothyroxine Sodium 112 Mcg Tablet) 112 mcg PO DAILYBB [facility] Stop: 01/11/22 06:29 Last Admin: 12/13/21 05:07 Dose: 112 mcg Documented by: Lisinopril (Lisinopril 5 Mg Tab) 15 mg PO DAILY [facility]URE Stop: 01/11/22 08:59 Last Admin: 12/12/21 08:23 Dose: 15 mg Documented by: Melatonin (Melatonin 3 Mg Tab) 9 mg PO HSZ PRN PRN Reason: Sleep Stop: 01/10/22 17:21 Last Admin: 12/12/21 01:20 Dose: 9 mg Documented by: Metoprolol Succinate (Metoprolol Succ 25mg Ext Rel Tab) 25 mg PO BID [facility]URE Stop: 01/11/22 20:59 Last Admin: 04/21/22 21:06 Dose: 25 mg Documented by: Miscellaneous (Carbohydrates For Hypoglycemia ) 15 - 30 gm PO UD PRN PRN Reason: Hypoglycemia Protocol Stop: 01/10/22 17:06 Pantoprazole Sodium (Pantoprazole 40 Mg Tab) 40 mg PO DAILY [facility] Stop: 01/11/22 08:59 Last Admin: 12/12/21 08:24 Dose: 40 mg Documented by: Pramipexole Dihydrochloride (Pramipexole Dihydrochlo 0.5 Mg Tab) 1 mg PO DAILY [facility]URE Stop: 01/11/22 08:59 Last Admin: 12/12/21 08:24 Dose: 1 mg Documented by: Trazodone HCl (Trazodone Hcl 100 Mg Tab) 100 mg PO HS [facility] Stop: 01/10/22 20:59 Last Admin: 12/12/21 21:06 Dose: 100 mg Documented by: Venlafaxine HCl (Venlafaxine Hcl Xr 150 Mg Capxr) 150 mg PO DAILY [facility] Stop: 01/11/22 08:59 Last Admin: 12/12/21 08:24 Dose: 150 mg Documented by: Vitamin D (Cholecalciferol 1,000 Units 25 Mcg Tab) 2,000 units PO DAILY [facility]URE Stop: 01/11/22 08:59 Last Admin: 12/12/21 08:23 Dose: 2,000 units Documented by: (1) Pneumonia Laterality: bilateral Lung location: lower lobe of lung Pneumonia type: due to unspecified organism Qualified Code(s): J18.1 - Lobar pneumonia, unspecified organism
[2021-12-13 08:58] LABS: Hematocrit (blood only) 32.1 % (37-47); Hemoglobin 9.7 g/dL (12.0-16.0); Mean Corpuscular Hemoglobin 24.4 pg (25-34); Mean Corpuscular Hgb Conc 30.2 g/dL (32-36); Mean Corpuscular Volume 80.9 fL (80-100); RDW Coefficient of Variation 18.5 % (11.5-14.5); Red Blood Count 3.97 M/uL (4.2-5.4)
[2021-12-13] MEDS ORDERED: FERROUS SULFATE 325 MG TAB PO SCH (09:00)
[2021-12-13] MEDS ORDERED: FUROSEMIDE 40 MG TAB PO SCH (09:00)
[2021-12-13] MEDS: PRAMIPEXOLE DIHYDROCHLO 0.5 MG TAB PO SCH (09:07)
[2021-12-13] MEDS: lisinopril 5 MG TAB PO SCH (09:07)
[2021-12-13] MEDS: CHOLECALCIFEROL 1,000 UNITS 25 MCG TAB PO SCH (09:07)
[2021-12-13] MEDS: VENLAFAXINE HCL XR 150 MG CAPXR PO SCH (09:07)
[2021-12-13] MEDS: ASPIRIN 81 MG ECTAB PO SCH (09:08)
[2021-12-13] MEDS: PANTOprazole 40 MG TAB PO SCH (09:08)
[2021-12-13] MEDS: CALCIUM CARBONATE 500 MG CHEWABLE TAB PO SCH (09:08)
[2021-12-13] MEDS: METOPROLOL SUCC 25MG EXT REL TAB PO SCH (09:08)
[2021-12-13] MEDS: ACETAMINOPHEN 325 MG TAB PO SCH (09:09)
[2021-12-13] MEDS: INSULIN ASPART PER UNIT SC SCH ×2 (09:09→12:53)
[2021-12-13 09:22] LABS: BUN Creatinine Ratio 27.1 (10-20); Calcium 8.6 mg/dl (8.5-10.1); Creatinine Clr Calc Pharmacy 41.5 ml/min; Est GFR (Non-African American) 76.8 ml/min; Magnesium 1.9 mg/dl (1.7-2.4); Potassium 3.9 mmol/L (3.5-5.1)
[2021-12-13] MEDS ORDERED: ALBUT/IPRATROP 3MG/0.5MG NEB 3 ML VIAL NEB PRN (09:22)
[2021-12-13 09:26] LABS: Mean Platelet Volume 9.5 fL (7.4-10.4); Platelet Count 264 K/uL (130-400)
[2021-12-13 09:27] LABS: ALC (manual) 0.95 K/uL (1.2-3.4); ANC (manual) 34.89 K/uL (1.4-6.5); Lymphocytes # (manual) 0.95 K/uL (1.2-3.4); Lymphocytes % (manual) 2.6 %; Monocytes # (manual) 0.66 K/uL (0.11-0.59); Monocytes % (manual) 1.8 %; Neutrophils # (manual) 34.89 K/uL (1.4-6.5); Neutrophils % (manual) 95.6 %; Platelet Estimate Normal (Normal)
[2021-12-13 11:48] VITALS: BP 104/65; PULSE 105; TEMP 98.1; O2SAT 92
--- NOTE | 2021-12-13 12:13 | Electrocardiogram Report ---
Test Reason : Blood Pressure : / mmHG Vent. Rate : 091 BPM Atrial Rate : 091 BPM P-R Int : 140 ms QRS Dur : 134 ms QT Int : 402 ms P-R-T Axes : 047 054 013 degrees QTc Int : 494 ms Normal sinus rhythm Right bundle branch block Abnormal ECG When compared with ECG of 12-DEC-2021 05:58, No significant change was found Confirmed by Lei Booker ([id number] on 12/13/2021 12:13:13 PM Referred By: Delilah Colon Confirmed By:Emery Booker
--- NOTE | 2021-12-13 17:27 | Discharge Summary ---
Date of Service December 13, 2021 Admission HPI Per Admitting Provider 89 YOF with medical history of: HTN, HLD, Dyspnea, DM II, Hypothyroidism, depression, anxiety, OA, colon mass, arrythmia (aflutter 07/14), MRSA pneumonia. 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 She is under the care of [facility] and is to undergo R-CHOP therapy. The patient was seeing her Oncologist today for follow up after chemotherapy yesterday, where she became short of breath and hypoxic. She was sent to the EMD and noted to be hypoxic to recorded 80% on room air. The patient is just starting her 2nd Cycle of R-Chop and she receives this every 3 w eeks. Her niece is accompanying her and noted that she was well yesterday following her chemotherapy and returned back to her longterm. She picked her up this morning and noted a loose rattling sound in her voice as well as wet sounding cough this morning. The niece also endorses that she was able to walk into her appointment this morning without difficulty or increase in dyspnea. She had routine labs performed to include a HScTNI and BNP. She had an ECG done, CTA of the chest performed, CXR and a ECG. Her HScTNI was elevated as well as her BNP- her CTA of the chest was negative for PE but noted pulmonary congestion and/or infective process. She was administered 20mg IV lasix, 125mg of Hydrocortisone, and albuterol nebulizer by the [facility] and the hospitalist service was consulted for admission. The patient was comfortable appearing she is on 5L oxymask now with SPO2 97% and HR decreased to 97. She endorses she is coughing up brown sputum. Patient will be admitted to for her multifactorial hypoxia, continue with diuretics, will add Abx therapy in form of Cefepime 1GM now and then every 8 hours, ECHO in morning and trend her HScTNI. COVID and Influenza A/B: NEGATIVE on admission Principal Diagnosis Acute on chronic respiratory failure with hypoxemia Leukocytosis secondary to Neulasta Bronchitis treated with azithromycin Discharge Exam The patient appeared chronically ill and pleasantly confused Vital signs as documented. Lungs are clear but with poor air movement Cardiac exam, Rhythm is regular.. No murmurs, rubs or gallops. Abdominal exam reveals normal bowel sounds, soft non tender, no masses Extremities are nonedematous and both pedal pulses are normal. Neurologic exam is alert and oriented, no focal loss of strength or sensation Skin is without bruises or rashes Psychologically is without concerns for anxiety or depression. Discharge Data Allergies Allergy/AdvReac Type Severity Reaction Status Date / Time No Known Allergies Allergy Verified 12/11/21 17:14 Consultations 12/11/21 13:58 ED Decision to Admit Stat 12/11/21 17:07 Consult Cardiology Routine Ordered Studies 12/11/21 11:11 CT angio chest PE protocol Stat Hospital Course (1) Hypoxia: * Acute respiratory failure with hypoxia treated resolved with O2, Duonebs, IV Lasix, and IV Solumedrol, Acute hypoxia multifactorial to include pulmonary edema, COPD, patient has a negative procalcitonin and negative bio fire for respiratory viruses - COVID and Influenza negative - - Azithromycin for COPD component as well as atypical coverage for bronchitis - patient was MRSA swab positive with her pneumonia in 07/14 at [facility]-current MRSA swab negative CT scan of her chest on 12/11/2021 was groundglass opacities and smooth interlobular septal thickening which cannot be interpreted as infectious or pulmonary edema recommend treatment for both the subtle lymphadenopathy is increased which may be reactive and COPD changes are seen Believe crux of the matter was exacerbation of COPD plus minus bronchitis subsequently steroid taper and azithromycin be continued after discharge (2) (HFpEF) heart failure with preserved ejection fraction: hfpef Previous ECHO review with grade I diastolic dysfunction with EF 60-65 % and mild MR- 07/14- she may have recent - follows with [facility] [place] - ECHO in am - evaluate for any toxicity or change from her initiation of R-CHOP- again she is cycle #2- may have updated ECHO prior to initiaton of chemo- this is not available to confirm or review - BNP 562 - -Continue daily home Lasix dosing (3) B-cell lymphoma: Per chart review from [facility]- Agressive B-cell lymphoma right adrenal biopsy - R-CHOP as above cycle 2 - [facility] leukocytosis without atypical cells presently did receive Neulasta in the office (4) Elevated troponin I level: HScTNI elevated at 74 upon presentation to EMD - 2 hour reflex-73.4 - She is without complaints of angina and ECG reviewed without any dyanamic changes when compared to - ECG - This is demandischemia type II KS from her hypoxia and pulmonary congestion, increased HR on arrival - Not known to have CAD (5) Mitral regurgitation: Mild noted on previous ECHO -Echocardiogram shows preserved ejection fraction dilated left atrium mild to moderate mitral regurg no regional wall motion abnormalities -Continue daily diuretic - Continue Metoprolol (6) Hypothyroidism: Continue synthroid 112mcg (7) Depression: Continue Venlafaxine (8) Osteoarthritis: Continue tylenol (9) Hypertension: Continue BB and Lisinopril 15 mg PO daily (10) Diabetes mellitus, type 2: Remain in diabetic diet (11) Atrial flutter, paroxysmal: Noted on hospitalization in [facility] in Jul 14 - She had ZIO monitor following this - copy sent with hard chart - She is not on anticoagulation as discussed in cardiology consultation chart record - Continue with Metoprolol (12) Adenocarcinoma: Ileocecal vavlve diagnosed 02/08 - resected in 2017- biopsies for liver and blayne invovlment reported as negative (13) Non-small cell cancer of left lung: Stage I NSCLC diagnosed 2017- s/p resection 2017 - remains with mediastinal lymphadenoapthy (14) Anemia: chronic microcytic- continue ferrous sulfate PO - iron panel shows iron is elevated binding capacity is normal transferrin is normal transferrin saturations appropriate (15) Memory impairment: Pramipexole (16) Insomnia: continue her melatonin continue trazodone to avoid withdraw- although likely not needed as she sleeps through the day as review of her longterm notes and discussion with her neice - the pateint reportedly does not sleep at night (17) MRSA (methicillin resistant Staphylococcus aureus): MRSA nares positive 07/14- with hospitalization for pneumonia She is off isolation at this time Total Time Total Time Spent Total Time Spent (In Minutes): It required greater than 30 minutes to prepare this patient for discharge Discharge Plan Discharge Items Patient Disposition: Personal Retirement Reason For Visit: HYPOXIA, HF, PNA- Discharge Diagnosis: hypoxia chronic respiratory failure with hypoxia Activity: Per Instructions section Non-emergency contact: Primary Care Provider and Oncologist Call non-emergency contact if: your symptoms worsen Follow-up/Referrals: Miguelina Loera DO [Primary Care Provider] - Diet: Regular Addtl Attending Provider Instructions: you have been tested for viral pneumonia and covid, no tests confirmed these to be present your low oxygen maybe related to your COPD, we will have you on a steroid taper, and short course of antibiotic for bronchitis Please follow up with a primary care provider in one week Pending Studies at Discharge: No Stand-Alone Forms: My [employer], Smoking Cessation Skilled Items Patient informed of condition?: No DNR: Yes Discharge Level of Care: Other Communicable Disease: No Discharge Prognosis: Stable Lines: None Urinary Catheter: No Medications and DC Order Prescriptions: New trazodone 100 mg Tablet 100 mg PO HS Qty: 30 RF: 0 prednisone 10 mg tablet 10 mg PO DAILY Qty: 40 RF: 0 azithromycin 250 mg tablet 250 mg PO DAILY 4 Days Qty: 4 RF: 0 (DME) Oxygen Home Liters Per Minute See Rx Instructions .ROUTE Qty: 2 RF: 0 Continued aspirin [Adult Low Dose Aspirin] 81 mg tablet,delayed release (DR/EC) 81 mg PO DAILY Qty: 90 RF: 3 cholecalciferol (vitamin D3) 50 mcg (2,000 unit) capsule 50 mcg PO DAILY Qty: 90 RF: 3 levothyroxine 112 mcg tablet 112 mcg PO DAILY Qty: 90 RF: 3 metformin 850 mg tablet 850 mg PO BID Qty: 180 RF: 3 (DME) blood glucose control, normal Solution See Rx Instructions .Route Qty: 1 RF: 0 (DME) True Metrix Glucose Test Strip Strip See Rx Instructions .Route Qty: 200 RF: 5 acetaminophen [Tylenol] 325 mg tablet 650 mg PO BID Qty: 120 RF: 0 multivitamin Tablet 1 tab PO DAILY Qty: 30 RF: 0 furosemide [Lasix] 20 mg tablet 20 mg PO DAILY Qty: 90 RF: 0 metoprolol succinate 25 mg tablet extended release 24 hr 25 mg PO DAILY Qty: 30 RF: 2 venlafaxine [Effexor XR] 150 mg capsule,extended release 24hr 150 mg PO DAILY Qty: 30 RF: 2 omeprazole 20 mg capsule,delayed release(DR/EC) 20 mg PO DAILY Qty: 30 RF: 2 (DME) blood glucose contrl hi,normal [Assure Dose Norm-Hi Control] Solution See Rx Instructions .Route Qty: 1 RF: 0 ferrous sulfate 325 mg (65 mg iron) tablet 325 mg PO Q OTHER DAY Qty: 30 RF: 0 lisinopril 10 mg tablet 15 mg PO DAILY Qty: 30 RF: 2 acetaminophen [Tylenol] 325 mg Tablet 650 mg PO Q4 PRN (Reason: Pain) RF: 0 ondansetron HCl 8 mg tablet 8 mg PO Q8 PRN (Reason: Nausea) RF: 0 prednisone 20 mg tablet 60 mg PO .DAY 1-5 OF CHEMO CY RF: 0 sennosides-docusate sodium [Senna-S] 8.6-50 mg Tablet 1 tab-cap PO Q12 RF: 0 calcium carbonate [Tums E-X] 300 mg (750 mg) Tablet,Chewable 300 mg PO BID RF: 0 prochlorperazine maleate 10 mg tablet 10 mg PO Q6 PRN (Reason: Nausea) RF: 0 melatonin 10 mg Tablet 10 mg PO HS PRN (Reason: Sleep) RF: 0 Polyethylene Glyco Drp 0.4-0.3 1 drp OPB TID RF: 0 pramipexole 1 mg tablet 1 mg PO HS RF: 0 trazodone 100 mg tablet 100 mg PO HS RF: 0 Discharge Orders: Discharge Order (Routine); Ordered 12/13/21 Ordered By: Darrell Purvis Admission Data Admit Date/Time: 12/11/21 15:03 Attending Provider: Darrell Purvis Admit Provider: Vicente Fox Primary Care Provider: Miguelina Loera Other Providers: Vicente Fox ; Alvin Billy Other Interventions: Discharge Summary Assessment (RN) Last Done: 12/13/21 11:38 Coding Level of Care Code D/C DAY MANAGEMENT >30 MINS Diagnoses Hypoxia R09.02 (HFpEF) heart failure with preserved ejection fraction I50.30 B-cell lymphoma C85.10 Elevated troponin I level R77.8 Mitral regurgitation I34.0 Hypothyroidism E03.9 Depression F32.9 Osteoarthritis M19.90 Hypertension I10 Diabetes mellitus, type 2 E11.9 Atrial flutter, paroxysmal I48.92 Adenocarcinoma C80.1 Non-small cell cancer of left lung C34.92 Anemia D64.9 Memory impairment R41.3 Insomnia G47.00 MRSA (methicillin resistant Staphylococcus aureus) A49.02
== END 2021-12-13 16:00 | disposition home or self-care (01) | DRG 189 ==
LOC: ED 10:42 → SUATTDRO 15:03 → 2N 15:03